=== PATIENT | female | born 1940 | race Caucasian/White ===

== ENCOUNTER 2018-06-04 10:29 | Observation (INO) | payer MEDICARE ==
[2018-06-04] MEDS ORDERED: Iopamidol 370 76% 50 ML VIAL FS ONE (10:44)
[2018-06-04 11:38] LABS: #Basophils 0.1 thou/uL (0.0-0.2); #Eosinphils 0.3 thou/uL (0.0-0.7); #Lymphocytes 1.3 thou/uL (1.20-3.40); #Monocytes 0.6 thou/uL (0.11-0.59); #Neutrophils 3.1 thou/uL (1.40-6.50); %Eosinophils 5.9 % (0.0-10.0); %Lymphocytes 23.4 % (21.0-51.0); %Monocytes 11.8 % (0.0-10.0); %Neutrophils 57.9 % (42.0-75.0); Hemoglobin 11.9 g/dL (12.0-16.0); Mean Corpuscular HGB CONC 32.8 g/dL (32.0-36.0); Mean Corpuscular Hemoglobin 30.2 pg (27.0-31.0); Mean Corpuscular Volume 91.9 fL (78.0-98.0); Mean Platelet Volume 8.3 fL (7.4-10.4); Platelet Count 227 thou/uL (130-400); RBC Distribution Width 11.9 % (11.5-14.5); Red Blood Cell (RBC) Count 3.95 mill/uL (4.20-5.40); White Blood Cell (WBC) Count 5.4 thou/uL (4.8-10.8)
[2018-06-04 11:42] LABS: INR-International Normal Ratio 1.1; PTT 24.7 SEC (22.9-36.1); Prothrombin Time 13.9 SEC (12.0-14.7)
[2018-06-04] MEDS ORDERED: Pantoprazole 40 MG VIAL ONE (11:51)
[2018-06-04 12:08] LABS: ALT (SGPT) 11 U/L (8-55); AST (SGOT) 25 U/L (5-34); Albumin 3.8 g/dL (3.4-4.8); Alkaline Phosphatase 82 U/L (40-150); Anion Gap 16 mmol/L (10-20); BUN (Urea Nitrogen) 15 mg/dL (9.8-20.1); Bilirubin, Total 0.7 mg/dL (0.2-1.2); Calc. Creatinine Clearance 0 mL/min (70-130); Calcium 9.4 mg/dL (7.8-10.44); Carbon Dioxide 21 mmol/L (23-31); Chloride 107 mmol/L (98-107); Estimated GFR-MDRD 57; Globulin 3.3 g/dL (2.4-3.5); Glucose 76 mg/dL (83-110); Potassium 4.6 mmol/L (3.5-5.1); Protein, Total 7.1 g/dL (6.0-8.3); Sodium 139 mmol/L (136-145)
[2018-06-04 12:28] LABS: Bilirubin Negative (Negative); Blood, Urine Negative (Negative); Clarity CLEAR (Clear); Glucose, Urine (Dipstick) Negative (Negative); Leukocyte Trace (Negative); Nitrite Negative (Negative); Protein, Urine (Dipstick) Negative (Neg-Trace); Specific Gravity, Urine 1.017 (1.002-1.036); pH, Urine 6.5 (5.0-9.0)
[2018-06-04 12:31] LABS: Bacteria/HPF 1+ HPF (None Seen); Hyaline Casts/LPF 4-6 HYALINE CAST LPF (0-3 Hyaline); Pathc Cast-AUWi Flag 1.59 (0-2.49); RBC/HPF 0-3 HPF (0-3); WBC/HPF 0-3 HPF (0-3)
--- NOTE | 2018-06-04 12:59 | CT ---
CT ABDOMEN AND PELVIS WITH IV CONTRAST: HISTORY: Abdominal pain. Melena. COMPARISON: 05/19/2015 FINDINGS: The lung bases are clear. The left kidney and gallbladder are surgically absent with associated dist ention of the biliary system. Right adrenal adenoma appears stable. Prominent calcification through out the arterial structures. The urinary bladder is incompletely distended. Lack of oral contrast limits evaluation of the bowel. Numerous diverticula arise from the sigmoid co florencia. No adjacent inflammation. IMPRESSION: 1. Diverticulosis. No evidence of diverticulitis. 2. Atherosclerosis. 3. Postoperative changes and other chronic type findings appear stable. POS: [facility]
[2018-06-04] MEDS ORDERED: Ondansetron ODT 4 MG TAB SL PRN (15:52)
[2018-06-04] MEDS ORDERED: Ondansetron PF 4 MG/2 ML Vial IVP PRN ×2 (15:52→16:06)
[2018-06-04] MEDS ORDERED: Acetaminophen 325 MG TAB PO PRN (15:52)
[2018-06-04] MEDS ORDERED: Ondansetron ODT 4 MG TAB PO PRN (16:06)
[2018-06-04 16:07] VITALS: BMI 24.9
[2018-06-04] MEDS ORDERED: Pantoprazole 40 MG VIAL IVP SCH (16:15)
[2018-06-04 16:34] LABS: Hemoglobin 12.2 g/dL (12.0-16.0)
[2018-06-04] MEDS: Sodium Chloride 0.9% 1,000 ML IV SCH (16:48)
--- NOTE | 2018-06-04 19:54 | CON ---
DATE OF CONSULTATION: 06/04/2018 REASON FOR CONSULTATION: Bloody stool. HISTORY: Mrs. Rizo is a 77-year-old female who came to the ER today reporting 3-day history of having bloody stools characterized as initially liquid bloody diarrhea. She does have some low-grade cramping, rolling, abdominal discomfort, but denies having any severe localizing abdominal pain. There is no nausea or vomiting. There is no fever. She does feel weak, but does not have any orthostatic symptoms such as lightheadedness or syncope. Her vitals were normal in the ER. Her blood count showed a hemoglobin of 11.9, which is within her baseline dating back to the last 3 years. She had an outpatient EGD and colonoscopy by Dr. Blank in March 2015. The EGD showed a hiatal hernia and colonoscopy showed left-sided diverticulosis coli. Currently, she is without any other complaints. PAST MEDICAL HISTORY: 1. Hypertension. 2. Renal cell carcinoma. 3. History of colon adenoma. 4. Status post nephrectomy. 5. Status post mastectomy. 6. Status post cholecystectomy. 7. Status post recent salpingo-oophorectomy and bladder lift. ALLERGIES: NONE. SOCIAL HISTORY: The patient is . Has no tobacco or alcohol usage. FAMILY HISTORY: Negative for any known GI problem, liver disease, or GI malignancy. CURRENT MEDICATIONS: Include enalapril 2.5 mg daily. REVIEW OF SYSTEMS: 10-point review of systems did not show any other pertinent positives or negatives. PHYSICAL EXAMINATION: VITAL SIGNS: Temperature is 97.7, blood pressure 170/89, and pulse is 68. GENERAL: She is alert, conversant, in no distress. HEENT: Shows anicteric sclerae. Oropharynx is clear. NECK: Supple. CV: Shows normal S1 and S2. Regular rate and rhythm. CHEST: Shows normal breath sounds. ABDOMEN: Soft, mildly tender in the suprapubic and left middle quadrant. No guarding, tense, or rebound. She has active bowel sounds. No bruit. EXTREMITIES: Shows no edema. LABORATORY DATA: WBC is 5.4, hemoglobin 11.9, and platelet count of 227. Sodium 139, potassium 4.6, chloride 107, CO2 of 21, creatinine 0.96, and BUN of 15. LFTs are normal. IMAGING STUDIES: Abdominal pelvic CT showed diverticulosis, but no CT finding of diverticulitis. No other acute findings. ASSESSMENT: 1. The patient with bloody stools/hematochezia for the last 3 days that appears to be slowing down or stopping. The patient did have a colonoscopy 3 years ago that showed left-sided diverticulosis. CT did not show any acute process. I suspect this is diverticular bleeding that appears to be slowing down or stopping. 2. Anemia, chronic at baseline. RECOMMENDATIONS: 1. Since the patient has had bleeding for the last 3 days, we will obtain nuclear GI bleeding scan in a.m. to ascertain cessation of bleeding. 2. Otherwise, no plan for endoscopic intervention at the present time. 3. We will continue to monitor clinically and follow her blood count. Job ID: [id number]
[2018-06-04] MEDS: Pantoprazole 40 MG VIAL IVP SCH (20:08)
[2018-06-05] MEDS: Acetaminophen 325 MG TAB PO PRN (00:56)
[2018-06-05] MEDS: Sodium Chloride 0.9% 1,000 ML IV SCH ×3 (01:00→16:43)
[2018-06-05 06:10] LABS: #Eosinphils 0.3 thou/uL (0.0-0.7); #Lymphocytes 0.9 thou/uL (1.20-3.40); #Monocytes 0.5 thou/uL (0.11-0.59); #Neutrophils 1.6 thou/uL (1.40-6.50); %Basophils 0.4 % (0.0-1.0); %Eosinophils 10.2 % (0.0-10.0); %Lymphocytes 26.7 % (21.0-51.0); %Monocytes 13.6 % (0.0-10.0); %Neutrophils 49.2 % (42.0-75.0); Mean Corpuscular HGB CONC 33.8 g/dL (32.0-36.0); Mean Corpuscular Hemoglobin 30.9 pg (27.0-31.0); Mean Corpuscular Volume 91.3 fL (78.0-98.0); Mean Platelet Volume 8.3 fL (7.4-10.4); Platelet Count 217 thou/uL (130-400); RBC Distribution Width 11.9 % (11.5-14.5); Red Blood Cell (RBC) Count 3.58 mill/uL (4.20-5.40); White Blood Cell (WBC) Count 3.3 thou/uL (4.8-10.8)
[2018-06-05 06:14] LABS: Anion Gap 10 mmol/L (10-20); BUN (Urea Nitrogen) 12 mg/dL (9.8-20.1); Calc. Creatinine Clearance 63 mL/min (70-130); Calcium 8.6 mg/dL (7.8-10.44); Carbon Dioxide 26 mmol/L (23-31); Chloride 108 mmol/L (98-107); Estimated GFR-MDRD 63; Glucose 85 mg/dL (83-110); Magnesium 1.8 mg/dL (1.6-2.6); Potassium 3.8 mmol/L (3.5-5.1); Sodium 140 mmol/L (136-145)
[2018-06-05] MEDS: Pantoprazole 40 MG VIAL IVP SCH (08:23)
--- NOTE | 2018-06-05 13:40 | NM ---
NUCLEAR MEDICINE GI BLEEDING EXAMINATION: Date: 06/05/18 COMPARISON: None. HISTORY: Blood stools. TECHNIQUE: Anterior planar imaging over 90 minutes is obtained following the intravenous administration of 27 mC i [id number] labeled tagged red blood cells. FINDINGS: There is normal blood pool activity seen with urinary bladder activity noted. There is no scintigrap hic evidence of active GI bleeding. IMPRESSION: No scintigraphic evidence of active GI bleeding. POS: [facility]
--- NOTE | 2018-06-05 17:26 | PRG ---
DATE OF SERVICE: 06/05/2018 GI followup. SUBJECTIVE: Ms. Rizo has lower abdominal pain. She had some bowel movements after lunch showed less blood when she wiped. Her tagged scan was negative. She feels that the Protonix given to her is making her stomach hurt. Her daughter notes that she has had this problem for a while. In November, she had some pelvic surgery for her pelvic pain, and she had some lysis of adhesions. OBJECTIVE: VITAL SIGNS: Temperature is 97.9, pulse is 58, blood pressure is 153/75. ABDOMEN: Mildly tender in lower abdomen. There is no rebound. There is no guarding. Bowel sounds are positive. LABORATORY DATA: White count is 3.3, hemoglobin is 11, it was 11.9 yesterday morning, and platelet count 217. INR 1.1. Chemistry, normal comprehensive metabolic profile. . Liver function tests normal. ASSESSMENT: Lower gastrointestinal bleeding. The patient noted she had some quite a bit of mucus and some blood in the past 2 days before she came in with abdominal pain. She states it started here. She had a colonoscopy 2 years ago with diverticulosis. CAT scan was negative with lower abdominal pain. Differential diagnosis includes self-limited diverticular bleeding or some type of colitis. RECOMMENDATIONS: Advance diet as tolerated. Check H and H tomorrow. Start PPI. If her pain goes away and her hemoglobin is stable, she can probably go home tomorrow. Job ID: [id number]
[2018-06-05 21:01] VITALS: TEMP 97.9
[2018-06-06] MEDS: Acetaminophen 325 MG TAB PO PRN (00:51)
[2018-06-06 05:13] LABS: Band 3 % (5-11); Eosinophils 15 % (0-10); Hemoglobin 11.5 g/dL (12.0-16.0); Lymphocytes 22 % (21-51); MDiff Complete? YES; Mean Corpuscular HGB CONC 34.2 g/dL (32.0-36.0); Mean Corpuscular Hemoglobin 31.1 pg (27.0-31.0); Monocytes 9 % (0-10); Neutrophil 48 % (42-75); PLT Morphology Comment Appears Adequate; Platelet Count 218 thou/uL (130-400); RBC Distribution Width 11.9 % (11.5-14.5); Red Blood Cell (RBC) Count 3.71 mill/uL (4.20-5.40); White Blood Cell (WBC) Count 3.8 thou/uL (4.8-10.8)
[2018-06-06 05:15] LABS: ALT (SGPT) 10 U/L (8-55); AST (SGOT) 19 U/L (5-34); Albumin 3.4 g/dL (3.4-4.8); Alkaline Phosphatase 71 U/L (40-150); Anion Gap 9 mmol/L (10-20); BUN (Urea Nitrogen) 13 mg/dL (9.8-20.1); Bilirubin, Total 0.7 mg/dL (0.2-1.2); Calc. Creatinine Clearance 53 mL/min (70-130); Calcium 9.1 mg/dL (7.8-10.44); Carbon Dioxide 27 mmol/L (23-31); Chloride 108 mmol/L (98-107); Estimated GFR-MDRD 53; Globulin 2.6 g/dL (2.4-3.5); Glucose 89 mg/dL (83-110); Potassium 3.8 mmol/L (3.5-5.1); Sodium 140 mmol/L (136-145)
[2018-06-06 08:01] VITALS: BP 158/80
--- NOTE | 2018-06-06 09:08 | PDOC.PN ---
- Subjective Encounter Start Date: 06/05/18 Encounter Start Time: 15:00 follow up for rectal bleeding. Pt in Nuc Med earleir, Tagged scan negative, no further bleeding, h/H stable. Pt upset that i hadnt seen her yet, but ishe was gone on morning rounds No F/C, no n/V/D/C, no cP or SOB all systems reviewed and neg x as above - Objective Resuscitation Status - Order Detail: 06/04/18 14:49 Resuscitation Status Routine Resuscitation Status: FULL: Full Resuscitation MAR Reviewed: Yes Vital Signs & Weight: Vital Signs (12 hours) Temp Pulse Resp BP Pulse Ox 06/06/18 07:55 97.9 F 61 18 158/80 H 95 Weight Weight 159 lb I&O: 06/05/18 06/06/18 06/07/18 06:59 06:59 06:59 Intake Total 1710 120 Balance 1710 120 Result Diagrams: 06/06/18 04:06 06/06/18 04:06 Phys Exam - Physical Examination Constitutional: NAD HEENT: PERRLA, moist MMs, sclera anicteric, oral pharynx no lesions Neck: no nodes, no JVD, supple, full ROM Respiratory: no wheezing, no rales, no rhonchi, clear to auscultation bilateral Cardiovascular: RRR, no significant murmur, no rub Gastrointestinal: soft, non-tender, no distention, positive bowel sounds Musculoskeletal: pulses present Neurological: non-focal, normal sensation, moves all 4 limbs Lymphatic: no nodes Psychiatric: normal affect, A&O x 3 Skin: no rash, normal turgor, cap refill <2 seconds Dx/Plan (1) Rectal bleeding Code(s): K62.5 - HEMORRHAGE OF ANUS AND RECTUM Status: Acute (2) HTN (hypertension) Code(s): I10 - ESSENTIAL (PRIMARY) HYPERTENSION Status: Chronic Qualifiers: Hypertension type: essential hypertension Qualified Code(s): I10 - Essential (primary) hypertension (3) Diverticulosis Code(s): K57.90 - DVRTCLOS OF INTEST, PART UNSP, W/O PERF OR ABSCESS W/O BLEED Status: Acute Qualifiers: Diverticulosis site: diverticulosis of large intestine (4) Abdominal pain Code(s): R10.9 - UNSPECIFIED ABDOMINAL PAIN Status: Resolved - Plan cont current plan of care, plan discussed w/ family * .
--- NOTE | 2018-06-06 10:11 | DIS ---
DATE OF ADMISSION: 06/04/2018 DATE OF DISCHARGE: 06/06/2018 PRIMARY CARE PHYSICIAN: Dr. Vazquez. DISCHARGE DIAGNOSES: 1. Likely internal hemorrhoidal bleeding. 2. Degenerative joint disease. 3. Hypertension. 4. History of breast cancer. 5. History of renal cell carcinoma. 6. History of diverticulosis. CONSULTATIONS: GI. PROCEDURE: GI bleed nuclear scan on 06/05/2018, it showed no evidence of active bleeding. HISTORY AND PHYSICAL: Ms. Rizo is a 77-year-old female, who presented to the ER with 3 days of rectal bleeding and dark stools. We were called for admission. HOSPITAL COURSE: The patient was seen and examined by me in the emergency department, placed in observation status. Overnight, her hemoglobin dropped only from 11.9 to 11.0. She was seen by Dr. Jacobs with GI, who ordered a tagged red blood cell scan, which was done in the morning of 06/05. Tagged scan came back negative. Dr. Blank saw her in the late afternoon and wanted to keep her one more night and trend her H and H's with the understanding that she can go home in the morning if it was negative. had no further bleeding. Her hemoglobin was stable and actually slightly improved from 11.0 to 11.5, and she was discharged home with outpatient followup on Protonix. PHYSICAL EXAMINATION: The patient was seen and examined on the day of discharge. Discharge plan and disposition were discussed with the patient face to face at bedside. DISCHARGE MEDICATIONS: Protonix 40 mg daily. DISCHARGE CONDITION: Stable. DISPOSITION: Discharged home via private vehicle with outpatient followup. FOLLOWUP APPOINTMENTS: 1. Primary care physician, Dr. Vazquez within a week. 2. GI with Dr. Jacobs or Dr. lBank in 2 to 3 weeks. DISCHARGE ACTIVITY: As tolerated. DISCHARGE DIET: Heart healthy recommended. Job ID: [id number]
--- NOTE | 2018-06-06 10:13 | HP ---
PRIMARY CARE PHYSICIAN: Dr. Vazquez. TIME OF SERVICE: 1500 hours. CHIEF COMPLAINT: Rectal bleeding. HISTORY OF PRESENT ILLNESS: Ms. Rizo is a 77-year-old female with history of diverticulosis and history of diverticulitis a year or so ago, breast cancer and renal cell carcinoma in remission, hypertension, DJD. She presented to the emergency department complaining of black colored hard stool with some red blood for about 2 to 3 days. She is having 2 to 3 episodes a day. She decided to come to the emergency department for workup. Evaluation here showed hemoglobin 11.9 and we were subsequently called for admission. She does take Aleve as needed for arthritic pain, but denies any fevers or chills. No nausea or vomiting. No diarrhea. No melena. No hematemesis. PAST MEDICAL HISTORY: 1. Diverticulosis. She had diverticulitis in June 2017. 2. Breast cancer. 3. Renal cell carcinoma. 4. Hypertension. 5. DJD. PAST SURGICAL HISTORY: 1. She had oophorectomy recently. 2. Bladder surgery. 3. Left nephrectomy. 4. Right axillary lymph node dissection. 5. Cholecystectomy. 6. Right lumpectomy. 7. Left rotator cuff repair. MEDICATIONS: Home medications: She says none regularly. ALLERGIES: NKDA. FAMILY HISTORY: Negative for clotting or bleeding disorder, no immune dysfunction. SOCIAL HISTORY: Negative habits x3. She lives by herself and takes care of animals at home and is very anxious to get back to them. REVIEW OF SYSTEMS: All systems reviewed and negative except as stated in the HPI. PHYSICAL EXAMINATION: VITAL SIGNS: Temperature on admission 97.7, pulse 68, blood pressure 170/89, respiratory rate 18, saturating 96% on room air. GENERAL: She is awake, alert, oriented x3. She is an age-appropriate appearing white female, appears to be in no acute distress. HEENT: Normocephalic, atraumatic. Pupils equal, round, react to light bilaterally, mucous membranes are moist. There is no visible lesion or thrush. NECK: Supple. There is no lymphadenopathy, JVD, or thyromegaly. She had normal carotid upstrokes. No bruit. LUNGS: Clear. No wheezes, no rales, no rhonchi. Good air movement. Symmetric chest excursion. ABDOMEN: Soft, nontender, nondistended. No mass or hepatosplenomegaly. CARDIOVASCULAR: Normal S1, S2. No S3 or S4. She has regular and normal cardiac. SKIN: Warm, moist, well perfused. No rash or lesion. EXTREMITIES: No cyanosis, clubbing, or edema. NEUROLOGIC: Cranial nerves 2 through 12 grossly intact. No focal neuro deficits. LABORATORY DATA: CBC showed a white count of 5.4, hemoglobin 11.9, hematocrit 36.3, and platelet count 227,000 with fairly normal differential. INR is 1.1. CMP is within normal limits. Sodium 139, potassium 4.6, creatinine of 0.96. Normal LFTs. Urinalysis showed trace leukocyte esterase, 7 to 10 squamous epithelial cells. IMAGING STUDIES: CT scan of the abdomen and pelvis showed postoperative changes and diverticulosis without diverticulitis and atherosclerosis. ASSESSMENT AND PLAN: Gastrointestinal bleed, had some dark stool with some red blood. I suspect this could be a lower GI or internal hemorrhoids. We will place her on a PPI for now. We will ask GI to evaluate. We will get serial H and H. Hemoglobin is still 11.9, I think she is going to need transfusion. Watch overnight and continue home medications otherwise. We will place her on Protonix 40 mg IV q.12 hours for now and follow up on GI recommendations. Job ID: [id number]
== END 2018-06-06 09:57 | disposition home or self-care (01) ==
LOC: ERS 10:29 → INTOOBSV 15:56 → T4-B 15:56
PROVIDERS: ADMIT Internal Medicine Infectious Disease; ATTEND Internal Medicine Infectious Disease
DX: K62.5 Hemorrhage of anus and rectum (principal); K57.30 Diverticulosis of large intestine without perforation or abscess without bleeding; D64.9 Anemia, unspecified; M19.90 Unspecified osteoarthritis, unspecified site; I10 Essential (primary) hypertension; Z85.3 Personal history of malignant neoplasm of breast; Z85.528 Personal history of other malignant neoplasm of kidney; Z79.899 Other long term (current) drug therapy
CPT/HCPCS: 74177; 78278; 80048; 80053 ×2; 82274; 83735; 85014; 85018; 85025 ×3; 85610; 85730; 86850; 86900; 86901; 87086; 96361 ×2; 96374; 96376 ×2; 99285; A9604; G0378 ×2; 36415; 81003; 81015; C9113

== ENCOUNTER 2018-10-22 09:26 | Inpatient (IN) | payer MEDICARE ==
[2018-10-22 10:12] LABS: #Basophils 0.1 thou/uL (0.0-0.2); #Eosinphils 0.1 thou/uL (0.0-0.7); #Lymphocytes 1.2 thou/uL (1.20-3.40); #Monocytes 0.4 thou/uL (0.11-0.59); #Neutrophils 4.5 thou/uL (1.40-6.50); %Eosinophils 1.7 % (0.0-10.0); %Lymphocytes 18.8 % (21.0-51.0); %Monocytes 6.6 % (0.0-10.0); Mean Corpuscular HGB CONC 32.7 g/dL (32.0-36.0); Mean Corpuscular Hemoglobin 29.6 pg (27.0-31.0); Mean Corpuscular Volume 90.5 fL (78.0-98.0); Mean Platelet Volume 8.1 fL (7.4-10.4); Platelet Count 270 thou/uL (130-400); RBC Distribution Width 12.1 % (11.5-14.5); Red Blood Cell (RBC) Count 3.72 mill/uL (4.20-5.40); White Blood Cell (WBC) Count 6.3 thou/uL (4.8-10.8)
[2018-10-22 10:35] LABS: ALT (SGPT) 13 U/L (8-55); AST (SGOT) 20 U/L (5-34); Alkaline Phosphatase 85 U/L (40-150); Anion Gap 12 mmol/L (10-20); BUN (Urea Nitrogen) 22 mg/dL (9.8-20.1); Bilirubin, Total 0.9 mg/dL (0.2-1.2); Calc. Creatinine Clearance 0 mL/min (70-130); Calcium 9.3 mg/dL (7.8-10.44); Carbon Dioxide 22 mmol/L (23-31); Chloride 108 mmol/L (98-107); Estimated GFR-MDRD 47; Globulin 2.7 g/dL (2.4-3.5); Glucose 110 mg/dL (83-110); Potassium 4.3 mmol/L (3.5-5.1); Protein, Total 6.7 g/dL (6.0-8.3); Sodium 138 mmol/L (136-145)
[2018-10-22 10:59] LABS: INR-International Normal Ratio 1.1; PTT 28.6 SEC (22.9-36.1); Prothrombin Time 14.5 SEC (12.0-14.7)
--- NOTE | 2018-10-22 11:44 | CT ---
CT Abdomen Pelvis W Con: 10/22/2018 10:20 AM CLINICAL INFORMATION: Hematochezia COMPARISON: 06/04/2018, 05/19/2015 Procedure: Multiple contiguous axial images were obtained and a CT of the abdomen and pelvis with IV contrast. C oronal reformats were performed. FINDINGS: Lower Chest: Chronic changes Vessels: Normal caliber aorta. Abdomen: Portal vein:Patent Gallbladder: Surgically absent. Dilatation of the intra and extrahepatic biliary system, due to reser voir effect Liver: within normal limits. Pancreas: within normal limits. Spleen: within normal limits. Adrenals: Surgically absent left adrenal gland. 1.8 x 2.6 cm nodule associated with the right adrenal gland (previously measuring 2.5 x 2.1 cm. Kidneys: Surgically absent left kidney. Appropriate enhancement of the right kidney. No enhancing mas ses. No fracture. Uropathy. Stable parapelvic cyst in the lower pole of the right kidney with attenuation coefficient of 13 Hounsfield units. Peritoneum: No ascites or free air, no fluid collection. Bowel: Limited evaluation by the lack of oral contrast. Bariatric surgical changes are noted. No evid ence of bowel obstruction. Ileocecal junction is normal. Normal caliber appendix. Scattered fecal material in a nondistended, nondilated colon. Diverticulosis, without evidence of diverticulitis Mesentery and Retroperitoneum: No enlarged mesenteric or retroperitoneal lymph nodes. Abdominal Wall: within normal limits. Pelvis: Reproductive Organs: Surgically absent uterus Pelvis within normal limits. Bladder: within normal limits. Bones: within normal limits. IMPRESSION: 1. No evidence of bowel obstruction 2. Diverticulosis, without evidence of diverticulitis. 3. Given patient's history of hematochezia, consider colonoscopy if clinically warranted. 4. Indeterminate lesion in the right adrenal gland, similar to the examination from May 2018 and April 2015 5. Findings compatible with surgery in the left hemiabdomen.
[2018-10-22 14:23] VITALS: BMI 23.3
[2018-10-22 14:26] LABS: Troponin I Less than 0.010 ng/mL (< 0.028)
[2018-10-22] MEDS ORDERED: Diabetic Tussin 200 MG/10 ML UDCUP PO PRN (15:15)
[2018-10-22] MEDS ORDERED: Senokot S 8.6-50 MG TAB PO PRN (15:15)
[2018-10-22] MEDS ORDERED: Benzonatate 100 MG CAP PO PRN (15:15)
[2018-10-22] MEDS ORDERED: Ondansetron PF 4 MG/2 ML Vial IVP PRN (15:15)
[2018-10-22] MEDS ORDERED: hydrALAZINE 20 MG/ML VIAL SLOW IVP PRN (15:15)
[2018-10-22] MEDS ORDERED: Sodium Chloride 0.65% Nasal 44 ML BOT EA NARE PRN (15:15)
[2018-10-22] MEDS ORDERED: Acetaminophen 325 MG TAB PO PRN (15:15)
[2018-10-22] MEDS ORDERED: cloNIDine 0.1 MG TAB PO PRN (15:15)
[2018-10-22] MEDS ORDERED: Sodium Chloride 0.9% (PF) 10 ML VIAL FS PRN (15:35)
--- NOTE | 2018-10-22 16:32 | HP ---
PRIMARY CARE PHYSICIAN: None. CHIEF COMPLAIN: Bright red blood per rectum with maroon stools. HISTORY OF PRESENTING ILLNESS: Ms. Rizo is a pleasant 78-year-old female with past medical history of diverticulitis as well as history of breast cancer and kidney cancer, who presented to the emergency room with above-mentioned complaints. History is mainly obtained by the patient herself and electronic medical records have been reviewed. The patient was last admitted to our facility in May 2018 with similar complaints. At that time, she was seen by Gastroenterology, Dr. Jacobs and underwent a tagged nuclear GI bleed scan on 06/05/2018, which showed no evidence of active bleeding. She was discharged home at that time on Protonix. She came back to the emergency room today when all of a sudden she started to have multiple episodes of maroon stools starting yesterday. She has been noticing some pain in her lower back, coming to her front as well. She reports that since last night, she has had 12 episodes of maroon bloody bowel movements without much stool, and this morning, they cleared up and she has had two regular stools since morning that were sort of loose. She denies any abdominal pain. She denies any nausea or vomiting. She has no recent travels and no recent dietary or medication changes. Her last colonoscopy was about 3 years ago. She reports that she has been seen by physicians in different hospitals, but she was not satisfied with any of the workup, so she stopped going to the doctors all together. She went to Urgent Care today, where she was found to be significantly symptomatic with dizziness on standing. Her blood pressure was checked and she was definitively orthostatic with her systolic blood pressure dropping from 120s to 60s. So, she was transferred to our facility, where orthostatics were checked again and she was very symptomatic. Her hemoglobin was however found to be stable around 11. Our ER doctor did a CT scan of her abdomen and pelvis, which was negative for any bowel obstruction. She had diverticulosis without evidence of diverticulitis. There was an indeterminate lesion in the right adrenal gland, which was similar to examination from May 2018 and April 2015. She was treated with some saline and is now being admitted under observation status for further workup for her hematochezia causing near syncope. The patient also endorses some chest discomfort and some epigastric discomfort since yesterday. PAST MEDICAL HISTORY: 1. Diverticulosis and diverticulitis in June 2017. 2. History of breast cancer. 3. History of renal cell carcinoma. 4. Hypertension. 5. Degenerative joint disease. PAST SURGICAL HISTORY: 1. Oophorectomy with bladder sling operation in the past. 2. Left nephrectomy. 3. Right axillary lymph node dissection. 4. Cholecystectomy. 5. Right lumpectomy. 6. Left rotator cuff repair. HOME MEDICATIONS: Current home medications as listed in the ER records and further need to be confirmed. 1. Enalapril 5 mg. 2. Aspirin 325 mg. 3. Iron supplements. ALLERGIES: NO KNOWN MEDICATION ALLERGIES. FAMILY HISTORY: Negative for any clotting, bleeding, or immune disorders. No family history of colon cancer, stomach cancer, or coronary artery disease. SOCIAL HISTORY: She lives by herself and is independent with her ADLs and IADLs. She has no history of drug, tobacco, or alcohol abuse. CODE STATUS: Full code, discussed with the patient. REVIEW OF SYSTEMS: A 14-point review of system is done. It is negative except for those mentioned in the history and physical. LABORATORY DATA: Her CBC shows WBCs 6.3; hemoglobin 11.0, which was 11.5 in May 2018 and seems to be her baseline. PT, PTT, and INR are within normal limits. Serum chemistry showed chloride 108, bicarb 22, BUN 22, creatinine 1.12. Serial troponins are negative x2. Liver enzymes within normal limits. CT scan of the abdomen and pelvis as per HPI. Fecal occult blood testing is positive. PHYSICAL EXAMINATION: VITAL SIGNS: Most recent vital signs; temperature 97.6, pulse of 67, respirations 16, saturating 96% on room air. Blood pressure supine 147/78, sitting 151/69, and standing 130/68. GENERAL: She is lying comfortably in bed and is awake, alert, and oriented x3. HEENT: Mucous membrane is moist and pink. No oropharyngeal exudate or erythema. Head is normocephalic and atraumatic. Pupils are equal and reactive to light and accommodation. Extraocular movement intact. NECK: Supple without any lymphadenopathy, JVD, or bruit. CHEST: Clear to auscultation without any wheezing, rales, or rhonchi. HEART: Rate rhythm is regular without any murmurs, rubs, or gallops. ABDOMEN: Soft, nontender, and nondistended, with positive bowel sounds. EXTREMITIES: Free of any cyanosis, clubbing, or edema. NEUROLOGIC: Nonfocal. SKIN: Free of any rashes or bruises. Feels warm and dry to touch. RECTAL: Rectal exam was done in the emergency room by the ER physician, which showed maroon-colored stool. PSYCHIATRIC: Normal affect. IMPRESSION AND PLAN: 1. Hematochezia. The patient has had multiple episodes of hematochezia and is quite symptomatic with that. She will be started on gentle IV fluid for rehydration purposes and we will check hemoglobin and hematocrit every few hours. Most likely, she would need a colonoscopy again. She has history of diverticulitis, but none apparent on the CT scan for now. We will keep her n.p.o. and request consultation with Gastroenterology and treat her with IV Protonix for now twice a day. Transfuse to keep hemoglobin above 7. 2. Acute renal insufficiency. This is likely secondary to fluid volume loss and hypotension. We will start her on gentle IV fluids and recheck in the morning. Avoid any nephrotoxic medication. 3. Breast cancer. 4. History of renal cell carcinoma. Does not seem to have any recurrence at this time. 5. History of diverticulitis. No current episode. 6. SCDs for DVT prophylaxis. Proton pump inhibitor for GI prophylaxis. DISPOSITION: Ms. Rizo is currently being admitted to the hospital under observation status for hematochezia. Further management will depend upon her clinical course and Gastroenterology's recommendations. Job ID: [id number]
[2018-10-22 17:06] LABS: Hemoglobin 9.6 g/dL (12.0-16.0)
[2018-10-22] MEDS: Dextrose 5 %-0.45 % NaCl 1,000 ML IV SCH (17:17)
[2018-10-22 17:38] LABS: Troponin I 0.013 ng/mL (< 0.028)
[2018-10-22] MEDS: Pantoprazole 40 MG VIAL IVP SCH (20:23)
[2018-10-22 21:56] LABS: Hemoglobin 9.4 g/dL (12.0-16.0)
--- NOTE | 2018-10-23 02:14 | CON ---
DATE OF CONSULTATION: 10/22/2018 REASON FOR CONSULTATION: Bloody stool. HISTORY OF PRESENT ILLNESS: Mrs. Rizo is a 78-year-old female who is known to me from prior admission in May 2018. She presents this time with similar presentation. She reports having a sudden onset of hematochezia yesterday around 2:00 p.m. Over the ensuing 12 hours, she had approximately 12 episodes of small volume bloody stool along with small amount of clots. She denies having any abdominal pain other than some discomfort in the upper abdominal area. There is no nausea or vomiting. However, at 7 this morning, which is approximately 13 hours ago, she had a regular bowel movement without any visible blood. However, with positional change, she felt dizzy and lightheaded, but without any syncope. She denies having any chest pain. There is no shortness of breath. The patient presented to the ER with a hemoglobin of 11. However, recheck hemoglobin at fourth day showed decreased down to 9.6 g/dL. The patient was last admitted in May 2018 with similar painless bleeding. Bleeding scan at that time was negative. She did have an outpatient EGD and colonoscopy by Dr. Blank in March 2015 that showed left-sided diverticulosis coli. PAST MEDICAL HISTORY: 1. Renal cell carcinoma, status post nephrectomy. 2. History of colon polyps, adenoma. 3. Status post mastectomy for breast cancer. 4. Status post cholecystectomy. 5. Recent salpingo-oophorectomy and bladder lift. CURRENT MEDICATIONS: At home include none. ALLERGIES: NO KNOWN DRUG ALLERGIES. SOCIAL HISTORY: The patient is . She has no tobacco or alcohol usage. She works as a caregiver. FAMILY HISTORY: Negative for any known GI problem, liver disease, or GI malignancy. REVIEW OF SYSTEMS: All 10-point review of systems did not show any pertinent positives or negatives. PHYSICAL EXAMINATION: VITAL SIGNS: Temperature is 98.5, blood pressure 141/46, pulse of 60. GENERAL: She is alert, conversant, in no distress. HEENT: Shows anicteric sclerae. Oropharynx is clear. NECK: Supple. CV: Shows normal S1 and S2. Regular rate and rhythm. CHEST: Shows a breath sounds, clear to auscultation. ABDOMEN: Soft, mildly protuberant but nontender. No distention. No tympany. She has active bowel sounds. EXTREMITIES: Shows no edema. LABORATORY DATA: WBC 6.3, hemoglobin 11.0 at 10 a.m. this morning and now at 9.6 at 4:00 p.m., platelet count of 270. INR is 1.1, PTT 28.6. Electrolytes within normal range. Creatinine is 1.12. LFTs are normal. Troponin I three sets all negative. ASSESSMENT: 1. Hematochezia, painless, lasting for 12 hours, that has now resolved with normal stool without blood 13 hours ago. The patient has not had any further bowel movements since then. Her bleeding is very characteristic of diverticular bleed that has resolved similar to last presentation. 2. Mild orthostasis, likely from her mild acute anemia. RECOMMENDATIONS: 1. No GI intervention or diagnostic test is needed at the present time as she has not had any further bowel movement for the last 13 hours or any visible bleeding. 2. Continue to trend H and H and follow clinically. 3. We will follow. Job ID: [id number]
[2018-10-23 05:07] LABS: #Eosinphils 0.3 thou/uL (0.0-0.7); #Lymphocytes 1.1 thou/uL (1.20-3.40); #Monocytes 0.5 thou/uL (0.11-0.59); #Neutrophils 2.2 thou/uL (1.40-6.50); %Basophils 0.6 % (0.0-1.0); %Eosinophils 8.1 % (0.0-10.0); %Lymphocytes 26.1 % (21.0-51.0); %Monocytes 11.8 % (0.0-10.0); %Neutrophils 53.5 % (42.0-75.0); Hemoglobin 9.1 g/dL (12.0-16.0); Mean Corpuscular Hemoglobin 29.8 pg (27.0-31.0); Mean Corpuscular Volume 90.3 fL (78.0-98.0); Mean Platelet Volume 8.4 fL (7.4-10.4); Platelet Count 198 thou/uL (130-400); RBC Distribution Width 12.2 % (11.5-14.5); Red Blood Cell (RBC) Count 3.06 mill/uL (4.20-5.40)
[2018-10-23] MEDS: Dextrose 5 %-0.45 % NaCl 1,000 ML IV SCH ×2 (05:15→16:56)
[2018-10-23 05:23] LABS: Anion Gap 9 mmol/L (10-20); BUN (Urea Nitrogen) 15 mg/dL (9.8-20.1); Calc. Creatinine Clearance 51 mL/min (70-130); Calcium 8.6 mg/dL (7.8-10.44); Carbon Dioxide 25 mmol/L (23-31); Chloride 109 mmol/L (98-107); Estimated GFR-MDRD 56; Glucose 99 mg/dL (83-110); Sodium 139 mmol/L (136-145)
[2018-10-23] MEDS: Pantoprazole 40 MG VIAL IVP SCH ×2 (08:13→20:53)
[2018-10-23] MEDS ORDERED: Ferrous Sulfate 325 MG TAB PO SCH (09:00)
[2018-10-23] MEDS: Ferrous Sulfate 325 MG TAB PO SCH ×2 (10:04→15:46)
--- NOTE | 2018-10-23 11:42 | PDOC.PN ---
- Subjective Encounter Start Date: 10/23/18 Encounter Start Time: 11:40 Subjective: feels ok but has 2 episodes of bloody BM this morning -: still feeling very dizzy when she stands up -: no abd pain/V/N - Objective Resuscitation Status - Order Detail: 10/22/18 15:15 Resuscitation Status Routine Resuscitation Status: FULL: Full Resuscitation Discussed with: discussed with pt MAR Reviewed: Yes Vital Signs & Weight: Vital Signs (12 hours) Temp Pulse Resp BP Pulse Ox 10/23/18 07:15 98.4 F 55 L 18 133/62 100 10/23/18 04:50 97.7 F 63 16 130/65 97 10/22/18 23:46 98.3 F 68 16 121/57 L 98 Weight Weight 148 lb I&O: 10/22/18 10/23/18 10/24/18 06:59 06:59 06:59 Intake Total 630 Balance 630 Result Diagrams: 10/23/18 04:13 10/23/18 04:13 Additional Labs: Laboratory Tests 10/22/18 10/22/18 10/22/18 10:02 16:40 21:33 Hgb 11.0 L 9.6 L 9.4 L 10/23/18 04:13 Hgb 9.1 L Phys Exam - Physical Examination Constitutional: NAD HEENT: PERRLA, moist MMs, sclera anicteric, oral pharynx no lesions Neck: no nodes, no JVD, supple, full ROM Respiratory: no wheezing, no rales, no rhonchi, clear to auscultation bilateral Cardiovascular: RRR, no significant murmur Gastrointestinal: soft, non-tender, no distention, positive bowel sounds Musculoskeletal: no edema, pulses present Neurological: non-focal, normal sensation, moves all 4 limbs Psychiatric: normal affect, A&O x 3 Skin: no rash Dx/Plan (1) Rectal bleeding Code(s): K62.5 - HEMORRHAGE OF ANUS AND RECTUM Status: Acute Comment: Likely diverticular .On and off w drop in Hb.recheck Hb and will discuss w GI. cont PPI IV.No scope for now per GI .Pt eager to go home (2) Acute blood loss anemia Code(s): D62 - ACUTE POSTHEMORRHAGIC ANEMIA Status: Acute Comment: monitor. Start iron supplemets. Transfuse for Hb <7 (3) Orthostatic hypotension Code(s): I95.1 - ORTHOSTATIC HYPOTENSION Status: Acute Comment: due to GI blood loss. Cont IVF. recheck (4) Diverticulosis Code(s): K57.90 - DVRTCLOS OF INTEST, PART UNSP, W/O PERF OR ABSCESS W/O BLEED Status: Chronic Qualifiers: Diverticulosis site: diverticulosis of large intestine - Plan DVT proph w/SCDs recheck H/H .May DC home if stable.nereyda passing clots -: cont IVF -: discuss w GI * . Review of Systems - Review of Systems Constitutional: weakness. negative: fever, chills, sweats, malaise, other ENT: negative: Ear Pain, Ear Discharge, Nose Pain, Nose Discharge, Nose Congestion, Mouth Pain, Mouth Swelling, Throat Pain, Throat Swelling, Other Respiratory: negative: Cough, Dry, Shortness of Breath, Hemoptysis, SOB with Excertion, Pleuritic Pain, Sputum, Wheezing Cardiovascular: negative: chest pain, palpitations, orthopnea, paroxysmal nocturnal dyspnea, edema, light headedness, other Gastrointestinal: negative: Nausea, Vomiting, Abdominal Pain, Diarrhea, Constipation, Melena, Hematochezia, Other Genitourinary: negative: Dysuria, Frequency, Incontinence, Hematuria, Retention , Other Musculoskeletal: negative: Neck Pain, Shoulder Pain, Arm Pain, Back Pain, Hand Pain, Leg Pain, Foot Pain, Other Neurological: negative: Weakness, Numbness, Incoordination, Change in Speech, Confusion, Seizures, Other - Medications/Allergies Allergies/Adverse Reactions: Allergies Allergy/AdvReac Type Severity Reaction Status Date / Time No Known Allergies Allergy Verified 12/18/12 13:09 Medications: Current Medications Acetaminophen (Tylenol) 650 mg PO Q4H PRN PRN Reason: Headache/Fever/Mild Pain (1-3) Benzonatate (Tessalon) 100 mg PO Q6H PRN PRN Reason: Cough Clonidine (Catapres) 0.1 mg PO Q4H PRN PRN Reason: SBP > _160___ Ferrous Sulfate (Feosol) 325 mg PO BID-[facility] Guaifenesin (Robitussin Sf) 200 mg PO Q4H PRN PRN Reason: Cough Hydralazine HCl (Apresoline) 10 mg SLOW IVP Q4H PRN PRN Reason: SBP > 170 and HR < 70 Dextrose/Sodium Chloride (D5 1/2 Ns) 1,000 mls @ 75 mls/hr IV .[id number] [facility] Last Admin: 10/23/18 05:15 Dose: 1,000 mls Ondansetron HCl (Zofran) 4 mg IVP Q6H PRN PRN Reason: Nausea/Vomiting Pantoprazole Sodium (Protonix) 40 mg IVP Q12HR [facility] Last Admin: 10/23/18 08:13 Dose: 40 mg Senna/Docusate Sodium (Senokot S) 2 tab PO BID PRN PRN Reason: Constipation Sodium Chloride ([place] Nasal [place] 0.65%) 0 ml EA NARE QIDPRN PRN PRN Reason: Nasal Congestion Sodium Chloride (Normal Saline Pf) 10 ml FS PRN PRN PRN Reason: RECONSTITUTION
[2018-10-23] MEDS ORDERED: GoLYTELY 4,000 ml Bottle PO SCH (12:30)
--- NOTE | 2018-10-23 12:41 | PRG ---
DATE OF SERVICE: 10/23/2018 SUBJECTIVE: Ms. Rizo came in yesterday. She has been fed now. She is no longer having clots, but had some dark red stools twice this morning. Still feels pretty weak. MEDICATIONS: At home, she does take Aleve several times a month. Present medications; iron, D5W, acetaminophen, and Protonix. PHYSICAL EXAMINATION: GENERAL: She is resting comfortably in bed. She is in no distress. LUNGS: Clear. HEART: Regular rate and rhythm without clicks or murmurs. ABDOMEN: Soft and nontender. LABORATORY DATA: Hemoglobin is 9.1 this morning, it was 9.4 yesterday in the morning. BUN and creatinine are 15 and 0.97 down from 22 and 1.12. ASSESSMENT: Gastrointestinal hemorrhage. She seems to have slowed in her bleeding, maybe have stopped. She is taking NSAIDs on a regular basis. This is likely diverticular, but this is the first time she has had significant drop in hemoglobin. She had a similar bleed in May, just 4-1/2 months ago. RECOMMENDATIONS: 1. Avoid NSAIDs. 2. Upper and lower endoscopy tomorrow. We will follow along with you. Job ID: [id number]
[2018-10-23 13:11] LABS: Hemoglobin 9.4 g/dL (12.0-16.0)
[2018-10-24] MEDS: Dextrose 5 %-0.45 % NaCl 1,000 ML IV SCH (07:39)
[2018-10-24] MEDS: Ferrous Sulfate 325 MG TAB PO SCH ×2 (07:40→17:54)
[2018-10-24] MEDS: Pantoprazole 40 MG VIAL IVP SCH (08:37)
--- NOTE | 2018-10-24 12:27 | OP ---
DATE OF PROCEDURE: 10/24/2018 PROCEDURES PERFORMED: 1. Esophagogastroduodenoscopy (diagnostic). 2. Colonoscopy (diagnostic). INDICATION FOR PROCEDURE: Hematochezia, GI bleed. DESCRIPTION OF PROCEDURE: After the risks and benefits of the procedures were explained to the patient including risks of bleeding, infection, perforation, reactions to anesthesia, aspiration and/or pain, informed consent was obtained. The patient was then taken to the endoscopy suite, where deep sedation was administered via propofol and anesthesia support. Once adequate sedation was achieved, the standard gastroscope was introduced into the mouth with intubation of the esophagus, stomach, and the proximal small intestines with the findings listed below. The patient tolerated this portion of the procedure well with no immediate perioperative complications. Upon completion of this phase of the procedure, all equipment was removed from the patient and the bed was rotated 180 degrees in anticipation for the colonoscopy. After a digital rectal exam was performed, the standard colonoscope was introduced into the rectum and advanced to the terminal ileum with some difficulty due to significant tortuosity and diverticular disease experienced within the left colon. The quality of the prep was fair to poor with a large amount of retained solid stool seen within the cecum making it inadequate to clear the cecum and proximal ascending colon but was adequate for the evaluation of large mucosal lesions or active bleeding. The patient tolerated this procedure well with no immediate perioperative complications. Upon completion of this portion of the procedure, all equipment was removed from the patient and she was transferred to PACU in satisfactory condition. EGD FINDINGS: Esophagus: Normal-appearing mucosa was seen in the proximal, mid, and distal esophagus. The diaphragmatic pinch was seen at 40 cm while the GE junction was well seen at 37 cm denoting a 3-cm hiatal hernia. Otherwise, there was no evidence of erosions, ulcerations, mass, lesions, or active/recent bleeding. Stomach: Normal-appearing mucosa was seen in the gastric cardia, fundus, antrum, and incisura. Multiple small erosions were seen in the gastric body, but did not exhibit overt ulceration or active/recent bleeding. No biopsies were taken from these erosions. Given her history of recent increased NSAID use, there was no evidence of erosions, ulcerations, mass, lesions, or active/recent bleeding seen in the stomach. Duodenum: Normal-appearing mucosa was seen in both the duodenal bulb and second portion of the duodenum. There was no evidence of erosions, ulcerations, mass, lesions, or active/recent bleeding. IMPRESSION: 1. Multiple small nonbleeding erosions seen in the gastric body consistent with NSAID gastritis. 2. A 3-cm hiatal hernia without evidence of Fletcher's erosions/ulcerations. 3. No etiology for the patient's hematochezia was seen during this portion of the exam. COLONOSCOPY FINDINGS: Digital rectal exam, large external hemorrhoids were seen on external exam with one particular hemorrhoid extremely erythematous and friable with oozing of blood. COLON FINDINGS: A moderate amount of retained solid stool was seen in the colon primarily within the cecum, but also to a lesser degree within the ascending and transverse colons. The retained food debris in the cecum significantly interfered with visualization of this region and therefore could not clear the cecum for any evidence of fine mucosal lesions that might contribute to bleeding. However, the prep was adequate enough to evaluate for larger mucosal lesions greater than a centimeter in size of the mucosa seen. Normal-appearing mucosa was seen in the terminal ileum with no evidence of bleeding seen coming from this region. Normal-appearing mucosa was seen at the appendiceal orifice and ileocecal valve as well. Normal-appearing mucosa was then seen in the ascending, transverse, and descending colons. In the distal descending and sigmoid colons, there were innumerable diverticula present that were both small and large mouthed. Careful examination of all of these diverticula were performed to evaluate for possible diverticular bleeding source. However, none was seen/discovered. Normal-appearing mucosa was then seen in the rectum. Medium-sized internal hemorrhoids were seen on rectal retroflexion as well as a hypertrophied anal papillae. IMPRESSION: 1. Poor colonic preparation with inadequate visualization of the cecum (fine mucosal lesions could have been missed). 2. Severe left-sided diverticulosis without any evidence of diverticular bleeding. 3. Both medium-sized internal hemorrhoids and large external hemorrhoids with evidence of active oozing of blood at the external hemorrhoids (possible source of recent hematochezia). 4. Hypertrophied anal papillae. RECOMMENDATIONS: 1. We would continue to trend H and H and transfuse as necessary to maintain an H and H of 7/21 while inpatient. 2. We would continue to monitor clinically for signs of overt gross GI bleeding. 3. We would place the patient on a higher fiber diet given the presence of severe diverticulosis and internal and external hemorrhoids. 4. We will consider application of hydrocortisone cream on the external hemorrhoids for hemorrhoidal flare that may have resulted in significant hemorrhoidal bleeding. Given the stabilization of the patient's H and H and actually up-trending of her H and H over the last 12 to 24 hours and lack of evidence of GI bleeding within that time period, the patient could be potentially discharged to home with outpatient follow up in the GI Clinic for further evaluation of her hematochezia. We will sign off at this time. Please call with any questions. Job ID: [id number]
--- NOTE | 2018-10-24 12:50 | PDOC.PN ---
- Subjective Encounter Start Date: 10/24/18 (f/u GI bleed) Encounter Start Time: 12:48 Subjective: pt s/p egd and colonoscopy this morning - denies any pain or problems. -: She sees Dr. Benton in the outpatient setting for cardiology. SHe is not -: on any meds at home and does not take aspirin - Objective Resuscitation Status - Order Detail: 10/22/18 15:15 Resuscitation Status Routine Resuscitation Status: FULL: Full Resuscitation Discussed with: discussed with pt Vital Signs & Weight: Vital Signs (12 hours) Temp Pulse Resp BP Pulse Ox 10/24/18 11:45 151/67 H 10/24/18 11:11 97.7 F 61 18 182/84 H 100 10/24/18 10:05 98.0 F 58 L 18 144/65 H 99 10/24/18 07:29 98 F 61 16 145/76 H 99 10/24/18 05:44 97.5 F L 63 16 142/67 H 96 Weight Weight 150 lb 6.4 oz I&O: 10/23/18 10/24/18 10/25/18 06:59 06:59 06:59 Intake Total 630 3629 Balance 630 3629 Result Diagrams: 10/23/18 12:32 10/23/18 04:13 EKG Reviewed by me: Yes (8 beats VT at 4:42 today, otherwise sinus 60-70's) Phys Exam - Physical Examination Constitutional: NAD Respiratory: no wheezing, no rales, no rhonchi, clear to auscultation bilateral Cardiovascular: RRR, no significant murmur Gastrointestinal: soft, non-tender, no distention, positive bowel sounds Musculoskeletal: no edema Neurological: non-focal Psychiatric: normal affect Skin: no rash Dx/Plan (1) Acute blood loss anemia Code(s): D62 - ACUTE POSTHEMORRHAGIC ANEMIA Status: Acute (2) Orthostatic hypotension Code(s): I95.1 - ORTHOSTATIC HYPOTENSION Status: Acute (3) Rectal bleeding Code(s): K62.5 - HEMORRHAGE OF ANUS AND RECTUM Status: Acute (4) HTN (hypertension) Code(s): I10 - ESSENTIAL (PRIMARY) HYPERTENSION Status: Chronic Qualifiers: Hypertension type: essential hypertension Qualified Code(s): I10 - Essential (primary) hypertension - Plan * Appreciate GI evaluation - needs f/u as outpatient, bleeding attributed to hemorroids * Consult Cardiology for the 8 beats of VT and echo ordered * * Anticipate d/c when cleared by cardiology * * dvt prophy - ambulatory * gi prophy - not indicated, starting oral ppi due to the chronic erosions on EGD * * anticipate d/c today or tomorrow..
[2018-10-24] MEDS ORDERED: PROPOFOL 200 MG/20 ML VIAL ONE (15:49)
[2018-10-24 15:55] VITALS: BP 128/59; TEMP 98.4
--- NOTE | 2018-10-24 15:58 | CON ---
DATE OF CONSULTATION: PRIMARY CARE DOCTOR: Dr. Cook. PRIMARY ELEMENTARY SPECIAL EDUCATION TEACHER: Bethany Kevin MD PRIMARY GI DOCTOR: Dr. Aviles. REASON FOR CONSULT: Status post 8 beats of SVT. HISTORY OF PRESENT ILLNESS: Ms. Rizo is a very pleasant 78-year-old female with a significant history of diverticulitis, right breast cancer, and left kidney cancer with left nephrectomy. She presents to Emergency Department for bloody stool for 10 to 12 times last week and severe weakness. Does feel the patient had a dizziness; however, she did not have any other cardiac complaints. This morning, around 4 o'clock, she has an 8 beats of ventricular tachycardia. The patient was asymptomatic during the episode. She denies any chest pain, heaviness, tightness, or any other cardiac complaints. The patient also complained of intermittent palpitation for 5 minutes about a few times a month when she lay on the bed and she almost go to sleep, but the patient did not have any dizziness, lightheadedness, shortness of breath, or any other complaints during the episodes. She also complained of sharp chest pain to the right side for a few seconds. At this moment during initial Cardiology consult assessment, the patient denied any cardiac complaints. She is being active as working at home instead. She had a stress test last year at Dr. Kevin. She have seen Dr. Benton, last office visit was in october 2017. She was told she was doing well and she was also told that she should stop taking any blood pressure medication. PAST MEDICAL HISTORY: 1. Diverticulosis and diverticulitis in June 2017. 2. History of the right breast cancer in 1998. 3. History of left renal cell carcinoma. 4. Questionable hypertension. 5. Degenerative joint disease. PAST SURGICAL HISTORY: Oophorectomy with bladder sling operation in the past, left nephrectomy in 2005, right axillary lymph node dissection and right lumpectomy in 1998, cholecystectomy, right calf repair, and cataract surgery in June 2018. FAMILY HISTORY: There are no significant cardiac related disease in her family. The patient's mother due to the CVA. SOCIAL HISTORY: She is a . She had 3 children, who live well. She live by herself. She has been active. 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 She walks about 35 hours per week. She denies tobacco, EtOH, or illicit drug abuse. She drinks 2 cups of coffee a day. ALLERGIES: NO KNOWN DRUG ALLERGIES. HOME MEDICATIONS: She takes Aleve as needed. REVIEW OF SYSTEMS: A 12-point review of systems are negative unless otherwise mentioned in the HPI. PHYSICAL EXAMINATION: VITAL SIGNS: Temperature 98.0, blood pressure 144/65, pulse is 58, respiratory rate 18, and O2 saturation 99% with room air. GENERAL: The patient is alert and oriented x4, in no acute distress. EYES: Extraocular muscle movement intact. ENT AND MOUTH: Oral and nasal mucosa moist without lesion. NECK: Supple. Normal range of motion. No JVD. RESPIRATORY: Clear to auscultate bilaterally. No wheezing, rales, or rhonchi noted. CARDIOVASCULAR: Regular rate and rhythm. Normal S1 and S2. There are no S3 or S4. No significant murmur, hives, or thrill noted. 2+ pulses in bilateral upper and lower extremities. No edema in lower extremities. ABDOMEN: Soft and nontender. No mass to palpitate. Bowel sounds are present. SKIN: Warm and dry. No lesion, rash, or erythema noted. MUSCULOSKELETAL: The patient able to move all extremities and the patient denied claudication. PSYCHIATRIC: The patient's mood is appropriate. NEUROLOGIC: The patient is alert and oriented x4, nonfocal. LABORATORY DATA: WBC 4.0, hemoglobin 9.1, hematocrit 27.6, and platelet 198. Sodium 139, potassium 4.0, BUN 15, creatinine 0.97, calcium 8.6, AST 20, and ALT 13. Troponin level is negative. INR 1.1. She underwent upper and lower GI study, which showed she had a polyp and diverticulosis of the large intestine. The patient has 8 beats of nonsustained ventricular tachycardia around [address]-segment change and she is having the heart rate around 55 to 60. A 12-lead EKG in the ER shows sinus rhythm 68. ASSESSMENT AND PLAN: 1. Status post 8-beat of nonsustained ventricular tachycardia. The patient was asymptomatic during the episode. The patient had a stress test last year at Dr. Benton's office in [facility]. We are going to receive the results from the office and to decide further evaluation and the patient is going to have echocardiogram here during this admission. 2. Hematochezia, which is stable at this moment. She has upper and lower GI study yesterday, which is managed by Dr. Blank. 3. Hypertension. Her systolic blood pressure has been more than 140s, may beneficial to start low-dose beta becky to prevent further nonsustained ventricular tachycardia and control her blood pressure. 4. History of diverticulosis, which is managed by the patient's primary care doctor and GI. Thank you very much for Cardiology Service to participate in the care of this patient. We will follow along the patient's care team and make further recommendations as appropriate. Job ID: [id number]
--- NOTE | 2018-10-24 16:34 | PRG ---
DATE OF SERVICE: 10/24/2018 SUBJECTIVE: Ms. Rizo has had no further bleeding. She did undergo colonoscopy today with Dr. Mac, and she had a fairly significant hemorrhoid that had slight oozing. She has not bled in 2 days. Her hemoglobin was 9.4 today from 9.1 yesterday with no transfusion. PHYSICAL EXAMINATION: VITAL SIGNS: Temperature is 98, pulse is 60, blood pressure is 120/58 this afternoon. ABDOMEN: Nontender. She is dressed and ready to go home. I had hemorrhoidal tissue, which there is no active bleeding. ASSESSMENT: Lower gastrointestinal bleeding. It is unclear if this was from diverticular bleeding or hemorrhoids. She did drop in hemoglobin from 11 to 9.4. PLAN: 1. We will treat her conservatively for hemorrhoids, and she is showing no signs of bleeding now with a topical steroid and Citrucel fiber. I told her she could use hydrocortisone 25 mg suppositories, but if this is too expensive, she can get [id number] Preparation H suppositories. 2. She can follow up in my office in 1 to 2 weeks. Bleeding precautions were discussed with the patient. We will go ahead and sign off at this point in time as it seems like she is going home. Her Cardiology confirmed her previous cardiac evaluation with Dr. Benton in [place] and if everything goes well and she is going to go home. Job ID: [id number]
--- NOTE | 2018-10-25 02:26 | DIS ---
DATE OF ADMISSION: 10/23/2018 DATE OF DISCHARGE: 10/24/2018 CONSULTANTS: Curtis Mac MD of Gastroenterology; Cardiology, Bethany Kevin MD PROCEDURES PERFORMED: EGD and colonoscopy. MEDICATIONS AT DISCHARGE: Medications reconciled at discharge, new medications: 1. Tylenol 1-2 tablets every 4 hours of the regular strength as needed for pain. 2. Hydrocortisone acetate 25 mg suppository at night for 10 nights. 3. Citrucel 1 tablespoon daily. MEDICATIONS DISCONTINUED: 1. Aspirin and Non-steroidal anti-inflammatory medications FINAL DIAGNOSES: 1. Gastrointestinal bleed attributed to hemorrhoids. 2. Brief nonsustained ventricular tachycardia, asymptomatic. 3. Chronic gastritis. 4. Severe diverticulosis, no active bleeding visualized. HISTORY OF PRESENT ILLNESS: Ms. Rizo is a 78-year-old female, who presented to the emergency room with multiple episodes of maroon stools. She had also been symptomatic from it. In the emergency room, the patient's hemoglobin was found to be 11. She was admitted for further workup. HOSPITAL COURSE: The patient underwent colonoscopy and EGD today. EGD showed normal esophagus with a 3 cm hiatal hernia, numerous gastric erosions without ulceration or bleeding, normal duodenum. Colonoscopy showed a poor colonic prep with inadequate visualization of the cecum, severe left-sided diverticulosis, small erythematous hemorrhoids and large erythematous external hemorrhoids. The hemorrhoids were thought to be the source of the bleeding. For this, it is recommended that the patient follow up in the outpatient setting with General Surgery for the external hemorrhoid. She will also follow up with Dr. Blank. She is started on fiber supplementation and hydrocortisone suppositories for short course to manage the symptoms. The patient had 8 beats of nonsustained ventricular tachycardia while here. She was evaluated by Cardiology and prior records were reviewed from another facility, with recommendation to follow up with her outpatient vocational rehabilitation counselor, Dr. Benton, or with Dr. Kevin. No further workup inpatient is warranted. The patient is overall feeling well, tolerating p.o., and does meet criteria for discharge to home. PHYSICAL EXAMINATION: Please see note on the chart from today. LABORATORY DATA: Craig findings and test results, hemoglobin today 9.4. CBC this morning 4.0, 9.1, 27.6, 198. INR 1.1. PT 14.5. Renal panel; 139, 4.0, 109, 25, 15, 0.97, 99. Troponin x3 negative. LFTs are negative. Stool occult blood was positive. 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 FOLLOWUP: 1. Follow up with Dr. Blank within a week. 2. Follow up with outpatient cardiology either Dr. Kevin or Dr. Benton within a week. 3. Follow up with the primary care provider within 2 weeks to review this hospitalization and address any other health needs. The patient will benefit from iron, this was not initiated at the time of discharge due to bleeding hemorrhoid and need for soft stools to assist with healing. Anticipate when this issue has been addressed, as that iron can be initiated. ACTIVITY: As tolerated. DIET: Regular. Reviewed with patient this hospitalization, the importance of followup, return for care precautions. DISCHARGE DISPOSITION: Home. TIME SPENT: Total time coordinating discharge is 30 minutes. Job ID: [id number]
== END 2018-10-24 18:24 | disposition home or self-care (01) | DRG 378 ==
LOC: ERS 09:26 → 2SW 12:20 → OBSVTOIN 10-23 12:40
PROVIDERS: ADMIT Internal Medicine; ATTEND Internal Medicine
PROC: 0DJ08ZZ Inspection of Upper Intestinal Tract, Via Natural or Artificial Opening Endoscopic (ICD-10-PCS; principal; 2018-10-23)
PROC: 0DJD8ZZ Inspection of Lower Intestinal Tract, Via Natural or Artificial Opening Endoscopic (ICD-10-PCS; 2018-10-23)
DX: K57.11 Diverticulosis of small intestine without perforation or abscess with bleeding (principal); D62 Acute posthemorrhagic anemia; I47.2 Ventricular tachycardia; I95.1 Orthostatic hypotension; K29.70 Gastritis, unspecified, without bleeding; K44.9 Diaphragmatic hernia without obstruction or gangrene; K64.8 Other hemorrhoids; K64.4 Residual hemorrhoidal skin tags; K62.89 Other specified diseases of anus and rectum
CPT/HCPCS: 36415; 74177; 80048; 80053; 82274; 84484; 85025; 85610; 85730; 86850; 86900; 86901; 93005; 96360; 96361; C9113

== ENCOUNTER 2021-01-25 11:48 | Emergency (ER) | payer MEDICARE ==
[2021-01-25 14:17] LABS: Hemoglobin 14.7 g/dL (12.0-16.0); Mean Corpuscular HGB CONC 32.8 g/dL (32.0-36.0); Mean Corpuscular Hemoglobin 31.3 pg (27.0-31.0); Mean Corpuscular Volume 95.3 fL (78.0-98.0); Mean Platelet Volume 7.5 fL (7.4-10.4); Platelet Count 245 thou/uL (130-400); RBC Distribution Width 11.7 % (11.5-14.5); Red Blood Cell (RBC) Count 4.71 mill/uL (4.20-5.40); White Blood Cell (WBC) Count 3.3 thou/uL (4.8-10.8)
[2021-01-25 14:23] LABS: ALT (SGPT) 25 U/L (8-55); AST (SGOT) 39 U/L (5-34); Albumin 4.6 g/dL (3.4-4.8); Alkaline Phosphatase 87 U/L (40-110); Anion Gap 15 mmol/L (10-20); BUN (Urea Nitrogen) 20 mg/dL (9.8-20.1); Bilirubin, Total 0.6 mg/dL (0.2-1.2); Calc. Creatinine Clearance 0 mL/min (70-130); Calcium 9.8 mg/dL (7.8-10.44); Carbon Dioxide 25 mmol/L (23-31); Chloride 99 mmol/L (98-107); Globulin 3.7 g/dL (2.4-3.5); Glucose 92 mg/dL (83-110); Potassium 4.5 mmol/L (3.5-5.1); Protein, Total 8.3 g/dL (5.8-8.1); Sodium 134 mmol/L (136-145)
[2021-01-25 14:55] LABS: Band 18 % (5-11); Lymphocytes 16 % (21-51); Monocytes 13 % (0-10); Neutrophil 50 % (42-75); Reactive Lymphocytes 3 % (0-10)
[2021-01-25 14:56] LABS: Platelet Morphology Comment Appears Adequate; Polychromasia SLIGHT = 2-3 cells (100X) (0-2/hpf)
[2021-01-25 14:57] LABS: MDiff Complete? YES
== END 2021-01-25 15:55 | disposition home or self-care (01) ==
LOC: ERS 11:48
DX: T88.1XXA Other complications following immunization, not elsewhere classified, initial encounter (principal); R53.1 Weakness; T50.B95A Adverse effect of other viral vaccines, initial encounter; M10.9 Gout, unspecified
CPT/HCPCS: 36415; 71045; 80053; 83690; 83880; 84484; 85025; 93005

== ENCOUNTER 2021-01-26 08:22 | Emergency (ER) | payer MEDICARE ==
[2021-01-26 09:31] LABS: Hemoglobin 13.7 g/dL (12.0-16.0); Mean Corpuscular HGB CONC 32.9 g/dL (32.0-36.0); Mean Corpuscular Hemoglobin 31.3 pg (27.0-31.0); Mean Corpuscular Volume 95.1 fL (78.0-98.0); Mean Platelet Volume 7.8 fL (7.4-10.4); Platelet Count 239 thou/uL (130-400); RBC Distribution Width 11.5 % (11.5-14.5); Red Blood Cell (RBC) Count 4.37 mill/uL (4.20-5.40); White Blood Cell (WBC) Count 3.9 thou/uL (4.8-10.8)
[2021-01-26 09:32] LABS: ALT (SGPT) 26 U/L (8-55); AST (SGOT) 43 U/L (5-34); Albumin 4.1 g/dL (3.4-4.8); Alkaline Phosphatase 74 U/L (40-110); Anion Gap 15 mmol/L (10-20); BUN (Urea Nitrogen) 24 mg/dL (9.8-20.1); Bilirubin, Total 0.6 mg/dL (0.2-1.2); Calc. Creatinine Clearance 0 mL/min (70-130); Calcium 9.2 mg/dL (7.8-10.44); Carbon Dioxide 21 mmol/L (23-31); Chloride 96 mmol/L (98-107); Globulin 3.4 g/dL (2.4-3.5); Glucose 88 mg/dL (83-110); Potassium 4.2 mmol/L (3.5-5.1); Protein, Total 7.5 g/dL (5.8-8.1); Sodium 128 mmol/L (136-145)
[2021-01-26 10:03] LABS: Band 1 % (5-11); Lymphocytes 27 % (21-51); MDiff Complete? YES; Monocytes 17 % (0-10); Neutrophil 55 % (42-75); Platelet Morphology Comment Appears Adequate; RBC Morphology Normal
[2021-01-26 11:30] LABS: Bilirubin Negative (Negative); Blood, Urine Negative (Negative); Clarity Turbid (Clear); Glucose, Urine (Dipstick) Normal (Negative); Ketone, Urine Negative (Negative); Leukocyte Negative Leu/uL (Negative); Nitrite Negative (Negative); Protein, Urine (Dipstick) Negative (Neg-Trace); Specific Gravity, Urine 1.007 (1.002-1.036); Urobilinogen Normal mg/dL (Less than 2); pH, Urine 5.5 (5.0-9.0)
[2021-01-26] MEDS ORDERED: Iopamidol-370 76% 500 ML 1 ML ONE (14:45)
== END 2021-01-26 14:19 | disposition home or self-care (01) ==
LOC: ERS 08:22
DX: E86.0 Dehydration (principal); T50.B95A Adverse effect of other viral vaccines, initial encounter; E87.1 Hypo-osmolality and hyponatremia; M19.90 Unspecified osteoarthritis, unspecified site
CPT/HCPCS: 36415; 71275; 80053; 81003; 83690; 84439; 84443; 84484; 85025; 85379; 93005; 94760; Q9967

== ENCOUNTER 2023-12-02 11:34 | Inpatient (IN) | payer MEDICARE ==
[~2023-12-02 11:34] MED LIST: Iopamidol-370 76% 500 ML MDV (1 ML CHARGE) ONE
[2023-12-02 13:22] LABS: #Basophils 0.03 10x3/uL (0.0-0.2); %Basophils 0.7 % (0.0-1.0); %Eosinophils 0.9 % (0.0-10.0); %Lymphocytes 20.9 % (21.0-51.0); %Monocytes 7.8 % (0.0-10.0); %Neutrophils 69.5 % (42.0-75.0); Hematocrit 26.2 % (36.0-47.0); Hemoglobin 8.5 g/dL (12.0-16.0); Mean Corpuscular HGB CONC 32.4 g/dL (32.0-36.0); Mean Corpuscular Hemoglobin 29.7 pg (27.0-31.0); Mean Corpuscular Volume 91.6 fL (78.0-98.0); Mean Platelet Volume 10.7 fL (7.4-10.4); Platelet Count 235 10x3/uL (130-400); RBC Distribution Width 15.9 % (11.5-14.5); Red Blood Cell (RBC) Count 2.86 mill/uL (4.20-5.40)
[2023-12-02 13:36] LABS: INR-International Normal Ratio 1.1; PTT 28.2 sec (22.9-36.1); Prothrombin Time 14.6 sec (12.0-14.7)
[2023-12-02 13:41] LABS: ALT (SGPT) 8 U/L (8-55); AST (SGOT) 22 U/L (5-34); Albumin 3.2 g/dL (3.4-4.8); Alkaline Phosphatase 62 U/L (40-110); Anion Gap 12 mmol/L (10-20); BUN (Urea Nitrogen) 32 mg/dL (9.8-20.1); Bilirubin, Total 0.5 mg/dL (0.2-1.2); Calc. Creatinine Clearance 0 mL/min (70-130); Calcium 9.1 mg/dL (7.8-10.44); Carbon Dioxide 22 mmol/L (23-31); Chloride 110 mmol/L (98-107); Estimated GFR 39; Globulin 2.7 g/dL (2.4-3.5); Glucose 95 mg/dL (83-110); Iron 31 ug/dL (50-170); Iron Binding Capacity, Total 311 mcg/dL (265-497); Potassium 4.4 mmol/L (3.5-5.1); Protein, Total 5.9 g/dL (5.8-8.1); Sodium 140 mmol/L (136-145)
[2023-12-02] MEDS ORDERED: HYDROcodone/Acetaminophen 5/325 mg Tablet PO PRN ×2 (15:03)
[2023-12-02] MEDS ORDERED: Acetaminophen 650 MG Suppository PR PRN (15:03)
[2023-12-02] MEDS: GoLYTELY 4,000 ml Bottle PO SCH (18:16)
[2023-12-02] MEDS: Pantoprazole 40 MG VIAL IVP SCH ×2 (18:17→20:17)
[2023-12-02 21:51] LABS: Hematocrit 27.2 % (36.0-47.0)
[2023-12-03 04:34] LABS: Hematocrit 21.8 % (36.0-47.0)
[2023-12-03 04:54] LABS: ALT (SGPT) 8 U/L (8-55); AST (SGOT) 20 U/L (5-34); Albumin 2.9 g/dL (3.4-4.8); Alkaline Phosphatase 55 U/L (40-110); Anion Gap 11 mmol/L (10-20); BUN (Urea Nitrogen) 25 mg/dL (9.8-20.1); Bilirubin, Total 0.6 mg/dL (0.2-1.2); Calc. Creatinine Clearance 0 mL/min (70-130); Calcium 8.6 mg/dL (7.8-10.44); Carbon Dioxide 22 mmol/L (23-31); Chloride 108 mmol/L (98-107); Estimated GFR 42; Globulin 2.3 g/dL (2.4-3.5); Glucose 89 mg/dL (83-110); Protein, Total 5.2 g/dL (5.8-8.1); Sodium 137 mmol/L (136-145)
[2023-12-03 08:40] LABS: Hematocrit 21.7 % (36.0-47.0); Hemoglobin 7.1 g/dL (12.0-16.0)
[2023-12-03] MEDS ORDERED: Midazolam HCl 2 mg/2 ml Vial ONE (10:14)
[2023-12-03] MEDS ORDERED: Ketamine In 0.9 % NaCl 50 MG/5 ML SYRINGE ONE (10:15)
[2023-12-03] MEDS ORDERED: PROPOFOL 20 ML ONE (11:25)
[2023-12-03] MEDS ORDERED: fentaNYL 50 mcg/mL 1 mL Vial ONE (12:07)
[2023-12-03 18:17] LABS: Hematocrit 26.5 % (36.0-47.0); Hemoglobin 9.2 g/dL (12.0-16.0)
[2023-12-03] MEDS: Lactated Ringer's 500 ML IV SCH (19:00)
[2023-12-03 21:18] LABS: Hemoglobin 8.6 g/dL (12.0-16.0)
[2023-12-04 01:27] LABS: Hematocrit 23.8 % (36.0-47.0); Hemoglobin 7.9 g/dL (12.0-16.0); Mean Corpuscular HGB CONC 33.2 g/dL (32.0-36.0); Mean Corpuscular Hemoglobin 29.7 pg (27.0-31.0); Mean Corpuscular Volume 89.5 fL (78.0-98.0); Mean Platelet Volume 10.4 fL (7.4-10.4); Platelet Count 196 10x3/uL (130-400); RBC Distribution Width 17.2 % (11.5-14.5); Red Blood Cell (RBC) Count 2.66 mill/uL (4.20-5.40)
[2023-12-04 03:54] LABS: #Basophils 0.03 10x3/uL (0.0-0.2); %Basophils 0.5 % (0.0-1.0); %Eosinophils 6.4 % (0.0-10.0); %Lymphocytes 15.2 % (21.0-51.0); %Neutrophils 66.4 % (42.0-75.0); Hematocrit 21.9 % (36.0-47.0); Hemoglobin 7.4 g/dL (12.0-16.0); Mean Corpuscular HGB CONC 33.8 g/dL (32.0-36.0); Mean Corpuscular Volume 88.7 fL (78.0-98.0); Mean Platelet Volume 10.8 fL (7.4-10.4); Platelet Count 185 10x3/uL (130-400); RBC Distribution Width 17.1 % (11.5-14.5); Red Blood Cell (RBC) Count 2.47 mill/uL (4.20-5.40)
[2023-12-04 04:15] LABS: Anion Gap 13 mmol/L (10-20); BUN (Urea Nitrogen) 17 mg/dL (9.8-20.1); Calc. Creatinine Clearance 0 mL/min (70-130); Calcium 8.4 mg/dL (7.8-10.44); Carbon Dioxide 21 mmol/L (23-31); Chloride 109 mmol/L (98-107); Estimated GFR 47; Glucose 88 mg/dL (83-110); Potassium 3.6 mmol/L (3.5-5.1); Sodium 139 mmol/L (136-145)
[2023-12-04 11:56] LABS: Hematocrit 24.7 % (36.0-47.0); Hemoglobin 8.2 g/dL (12.0-16.0)
[2023-12-04 14:50] VITALS: BP 137/70
[2023-12-04 18:38] LABS: Hematocrit 23.3 % (36.0-47.0); Hemoglobin 7.8 g/dL (12.0-16.0)
[2023-12-04] MEDS: Acetaminophen 325 MG TAB PO PRN (21:39)
[2023-12-05 02:26] LABS: #Basophils Less than 0.03 10x3/uL (0.0-0.2); %Basophils 0.4 % (0.0-1.0); %Eosinophils 10.1 % (0.0-10.0); %Lymphocytes 25.5 % (21.0-51.0); %Monocytes 12.5 % (0.0-10.0); %Neutrophils 50.9 % (42.0-75.0); Hematocrit 21.3 % (36.0-47.0); Hematocrit 21.6 % (36.0-47.0); Hemoglobin 7.2 g/dL (12.0-16.0); Mean Corpuscular HGB CONC 33.3 g/dL (32.0-36.0); Mean Corpuscular Hemoglobin 29.6 pg (27.0-31.0); Mean Corpuscular Volume 88.9 fL (78.0-98.0); Mean Platelet Volume 10.6 fL (7.4-10.4); Platelet Count 195 10x3/uL (130-400); RBC Distribution Width 16.6 % (11.5-14.5); Red Blood Cell (RBC) Count 2.43 mill/uL (4.20-5.40)
[2023-12-05 02:40] LABS: Anion Gap 9 mmol/L (10-20); BUN (Urea Nitrogen) 15 mg/dL (9.8-20.1); Calc. Creatinine Clearance 39 mL/min (70-130); Calcium 8.2 mg/dL (7.8-10.44); Carbon Dioxide 24 mmol/L (23-31); Chloride 110 mmol/L (98-107); Estimated GFR 49; Glucose 88 mg/dL (83-110); Potassium 3.6 mmol/L (3.5-5.1); Sodium 139 mmol/L (136-145)
[2023-12-05 09:36] LABS: Hematocrit 24.4 % (36.0-47.0); Hemoglobin 8.1 g/dL (12.0-16.0)
[2023-12-05] MEDS ORDERED: Loratadine 10 MG TAB PO PRN (09:51)
[2023-12-05 11:53] VITALS: TEMP 97.7
== END 2023-12-05 17:00 | disposition home or self-care (01) | DRG 378 ==
LOC: SUATTDRO 11:34 → ERS 11:34 → EEVIPCON 16:54 → T4-B 16:54 → OBSVTOIN 12-03 14:51 → IMCU/EMU 12-03 19:47
PROVIDERS: ADMIT Family Medicine; ATTEND Internal Medicine
PROC: 30233N1 Transfusion of Nonautologous Red Blood Cells into Peripheral Vein, Percutaneous Approach (ICD-10-PCS; 2023-12-03)
PROC: 30233K1 Transfusion of Nonautologous Frozen Plasma into Peripheral Vein, Percutaneous Approach (ICD-10-PCS; principal; 2023-12-04)
DX: K57.33 Diverticulitis of large intestine without perforation or abscess with bleeding (principal); C64.1 Malignant neoplasm of right kidney, except renal pelvis; D62 Acute posthemorrhagic anemia; N17.9 Acute kidney failure, unspecified; M19.90 Unspecified osteoarthritis, unspecified site; K29.01 Acute gastritis with bleeding; K64.8 Other hemorrhoids; E88.09 Other disorders of plasma-protein metabolism, not elsewhere classified; Z90.49 Acquired absence of other specified parts of digestive tract; Z85.3 Personal history of malignant neoplasm of breast; Z85.53 Personal history of malignant neoplasm of renal pelvis
CPT/HCPCS: 36415; 36430; 74177; 80048; 80053; 82728; 83540; 83550; 85014; 85018; 85025; 85610; 85730; 86850; 86900; 86901; 88305; C9113; J2250; J2704; J3010; J3490; J7120; P9016; P9059; Q9967

== ENCOUNTER 2024-04-25 02:25 | Inpatient (IN) | payer MEDICARE ==
[2024-04-25] MEDS ORDERED: Midazolam HCl 5 mg/ml Vial ONE (02:41)
[2024-04-25 03:05] LABS: #Basophils 0.05 10x3/uL (0.0-0.2); %Basophils 0.9 % (0.0-1.0); %Eosinophils 9.2 % (0.0-10.0); %Lymphocytes 25.9 % (21.0-51.0); %Monocytes 11.2 % (0.0-10.0); %Neutrophils 52.4 % (42.0-75.0); Hematocrit 37.8 % (36.0-47.0); Hemoglobin 12.2 g/dL (12.0-16.0); Mean Corpuscular HGB CONC 32.3 g/dL (32.0-36.0); Mean Corpuscular Hemoglobin 29.8 pg (27.0-31.0); Mean Corpuscular Volume 92.2 fL (78.0-98.0); Mean Platelet Volume 10.3 fL (7.4-10.4); Platelet Count 194 10x3/uL (130-400); RBC Distribution Width 14.3 % (11.5-14.5)
[2024-04-25] MEDS ORDERED: Metoprolol Tartrate 5 MG (5 mL) VIAL ONE (03:34)
[2024-04-25 03:36] LABS: ALT (SGPT) 37 U/L (8-55); AST (SGOT) 58 U/L (5-34); Albumin 3.5 g/dL (3.4-4.8); Alkaline Phosphatase 99 U/L (40-110); Anion Gap 17 mmol/L (10-20); BUN (Urea Nitrogen) 24 mg/dL (9.8-20.1); Bilirubin, Total 0.6 mg/dL (0.2-1.2); Calc. Creatinine Clearance 0 mL/min (70-130); Calcium 8.7 mg/dL (7.8-10.44); Carbon Dioxide 20 mmol/L (23-31); Chloride 108 mmol/L (98-107); Estimated GFR 44; Globulin 2.7 g/dL (2.4-3.5); Glucose 98 mg/dL (83-110); Lipase 76 U/L (8-78); Magnesium 1.8 mg/dL (1.6-2.6); Potassium 3.9 mmol/L (3.5-5.1); Protein, Total 6.2 g/dL (5.8-8.1); Sodium 141 mmol/L (136-145)
[2024-04-25 03:37] LABS: Acetaminophen Less than 10 mcg/mL (Less than 10); Alcohol Less than 10.0 mg/dL (Less than 10); Salicylate Less than 8.0 mg/dL (Less than 8.0)
[2024-04-25 03:38] LABS: Troponin I 0.013 ng/mL (< 0.028)
[2024-04-25] MEDS ORDERED: Amiodarone 150 MG/3 ML VIAL ONE (04:07)
[2024-04-25] MEDS ORDERED: NOREPINEPHRINE 8 MG/250 ML-D5W 250 ML ONE (04:12)
[2024-04-25 05:13] LABS: Actual Bicarbonate (HCO3a) 20.1 mEq/L (22-28); Base Excess (BEa) -5.2 mEq/L (-2.0 to +3.0); CO2 Tension 38.3 mmHg (35.0-45.0); Calcium, Ionized (arterial) 1.14 mmol/L (1.12-1.30); Carboxyhemoglobin (COHb) 0.4 gm% (0.0-3.0); Hematocrit-ABG 37 % (36.0-47.0); Hemoglobin (Hb) 12.6 g/dL (12.0-16.0); O2 Tension (PaO2), arterial 278.2 mmHg (> 60.0); pH, Arterial 7.337 (7.35-7.45)
[2024-04-25 05:14] LABS: ALV-art Gradient 386.925 mmHg (0-20); Puncture Site RR
[2024-04-25] MEDS ORDERED: DOPamine 400 MG/D5W 250 ML 250 ML ONE (05:20)
[2024-04-25] MEDS ORDERED: Ondansetron PF 4 MG/2 ML Vial IVP PRN (05:51)
[2024-04-25] MEDS ORDERED: Acetaminophen 325 MG TAB PO PRN (05:51)
[2024-04-25] MEDS ORDERED: Magnesium Sulfate 2 GM in Sodium Chloride 0.9% 100 ML IVPB SCH (06:00)
[2024-04-25] MEDS ORDERED: Magnesium 2 GM/50 ML BAG (IN WATER) ONE (06:01)
[2024-04-25] MEDS ORDERED: Ondansetron PF 4 MG/2 ML Vial ONE (06:11)
[2024-04-25] MEDS: Magnesium 2 GM/50 ML(in water) 2 GM in Premix 1 BAG IVPB SCH (06:27)
[2024-04-25] MEDS ORDERED: NOREPINEPHRINE 8 MG/250 ML-D5W 250 ML IVPB SCH (08:15)
[2024-04-25] MEDS ORDERED: Enoxaparin 40 MG (0.4 mL) SYRINGE SC SCH (09:00)
[2024-04-25] MEDS ORDERED: Heparin 5,000 UNITS/ML VIAL SC SCH (09:00)
[2024-04-25] MEDS ORDERED: Enoxaparin 60 MG (0.6 mL) SYRINGE SC SCH (09:00)
[2024-04-25] MEDS ORDERED: Electrolyte Replacement Protocol FS PRN (10:00)
[2024-04-25] MEDS: Electrolyte Replacement Protocol 1 EACH FS ONE (10:46)
[2024-04-25] MEDS: Pantoprazole DR 40 MG TAB PO SCH (10:58)
[2024-04-25] MEDS: Heparin 5,000 UNITS/ML VIAL SC SCH (10:59)
[2024-04-25 17:15] VITALS: BMI 21.2
[2024-04-25] MEDS: Enoxaparin 60 MG (0.6 mL) SYRINGE SC SCH (20:30)
[2024-04-26] MEDS: DOPamine 400 MG/D5W 250 ML 250 ML IVPB SCH (02:02)
[2024-04-26 04:58] LABS: #Basophils 0.03 10x3/uL (0.0-0.2); %Basophils 0.6 % (0.0-1.0); %Eosinophils 8.1 % (0.0-10.0); %Lymphocytes 16.9 % (21.0-51.0); %Monocytes 9.7 % (0.0-10.0); %Neutrophils 64.5 % (42.0-75.0); Hematocrit 35.6 % (36.0-47.0); Hemoglobin 11.8 g/dL (12.0-16.0); Mean Corpuscular HGB CONC 33.1 g/dL (32.0-36.0); Mean Corpuscular Hemoglobin 29.5 pg (27.0-31.0); Platelet Count 245 10x3/uL (130-400)
[2024-04-26 05:32] LABS: ALT (SGPT) 191 U/L (8-55); AST (SGOT) 155 U/L (5-34); Albumin 3.2 g/dL (3.4-4.8); Alkaline Phosphatase 105 U/L (40-110); Anion Gap 11 mmol/L (10-20); BUN (Urea Nitrogen) 17 mg/dL (9.8-20.1); Bilirubin, Total 0.6 mg/dL (0.2-1.2); Calc. Creatinine Clearance 38 mL/min (70-130); Calcium 8.7 mg/dL (7.8-10.44); Carbon Dioxide 25 mmol/L (23-31); Chloride 107 mmol/L (98-107); Estimated GFR 54; Globulin 2.8 g/dL (2.4-3.5); Glucose 94 mg/dL (83-110); Potassium 4.1 mmol/L (3.5-5.1); Sodium 139 mmol/L (136-145)
[2024-04-26] MEDS: Magnesium 2 GM/50 ML(in water) 2 GM in Premix 1 BAG IVPB SCH (07:48)
[2024-04-26] MEDS: Empagliflozin 10 MG TAB PO SCH (08:01)
[2024-04-27 04:58] LABS: #Basophils 0.04 10x3/uL (0.0-0.2); %Basophils 0.9 % (0.0-1.0); %Eosinophils 9.6 % (0.0-10.0); %Lymphocytes 18.2 % (21.0-51.0); %Monocytes 12.8 % (0.0-10.0); %Neutrophils 58.3 % (42.0-75.0); Hematocrit 34.2 % (36.0-47.0); Hemoglobin 11.3 g/dL (12.0-16.0); Mean Corpuscular Hemoglobin 29.6 pg (27.0-31.0); Mean Corpuscular Volume 89.5 fL (78.0-98.0); Mean Platelet Volume 10.2 fL (7.4-10.4); Platelet Count 223 10x3/uL (130-400); RBC Distribution Width 14.2 % (11.5-14.5); Red Blood Cell (RBC) Count 3.82 mill/uL (4.20-5.40)
[2024-04-27 05:14] LABS: ALT (SGPT) 118 U/L (8-55); AST (SGOT) 76 U/L (5-34); Albumin 3.1 g/dL (3.4-4.8); Alkaline Phosphatase 92 U/L (40-110); Anion Gap 15 mmol/L (10-20); BUN (Urea Nitrogen) 23 mg/dL (9.8-20.1); Bilirubin, Total 0.8 mg/dL (0.2-1.2); Calc. Creatinine Clearance 30 mL/min (70-130); Calcium 8.7 mg/dL (7.8-10.44); Carbon Dioxide 24 mmol/L (23-31); Chloride 107 mmol/L (98-107); Estimated GFR 41; Globulin 2.7 g/dL (2.4-3.5); Glucose 88 mg/dL (83-110); Magnesium 2.2 mg/dL (1.6-2.6); Potassium 4.6 mmol/L (3.5-5.1); Protein, Total 5.8 g/dL (5.8-8.1); Sodium 141 mmol/L (136-145)
[2024-04-27] MEDS: Carvedilol 6.25 MG TAB PO SCH (08:40)
[2024-04-27] MEDS ORDERED: Regadenoson 0.4 MG/5 ML SYRINGE ONE (09:38)
[2024-04-27 10:43] VITALS: BMI 20.9
[2024-04-27] MEDS ORDERED: Communication Order-Pharmacy FS SCH (19:00)
[2024-04-27] MEDS: Lisinopril 5 MG TAB PO SCH (20:22)
[2024-04-28 04:06] LABS: #Basophils 0.04 10x3/uL (0.0-0.2); %Basophils 0.9 % (0.0-1.0); %Eosinophils 5.7 % (0.0-10.0); %Lymphocytes 19.6 % (21.0-51.0); %Monocytes 12.1 % (0.0-10.0); %Neutrophils 61.3 % (42.0-75.0); Hematocrit 33.5 % (36.0-47.0); Hemoglobin 11.1 g/dL (12.0-16.0); Mean Corpuscular HGB CONC 33.1 g/dL (32.0-36.0); Mean Corpuscular Hemoglobin 29.7 pg (27.0-31.0); Mean Corpuscular Volume 89.6 fL (78.0-98.0); Mean Platelet Volume 10.8 fL (7.4-10.4); Platelet Count 230 10x3/uL (130-400); RBC Distribution Width 14.2 % (11.5-14.5); Red Blood Cell (RBC) Count 3.74 mill/uL (4.20-5.40)
[2024-04-28 04:42] LABS: ALT (SGPT) 86 U/L (8-55); AST (SGOT) 47 U/L (5-34); Albumin 3.2 g/dL (3.4-4.8); Alkaline Phosphatase 89 U/L (40-110); Anion Gap 13 mmol/L (10-20); BUN (Urea Nitrogen) 32 mg/dL (9.8-20.1); Bilirubin, Total 0.7 mg/dL (0.2-1.2); Calc. Creatinine Clearance 32 mL/min (70-130); Carbon Dioxide 22 mmol/L (23-31); Chloride 107 mmol/L (98-107); Estimated GFR 43; Globulin 2.6 g/dL (2.4-3.5); Glucose 89 mg/dL (83-110); Magnesium 2.2 mg/dL (1.6-2.6); Potassium 3.9 mmol/L (3.5-5.1); Protein, Total 5.8 g/dL (5.8-8.1); Sodium 138 mmol/L (136-145)
[2024-04-28] MEDS ORDERED: Heparin 10,000 UNITS/ 10 ML VIAL ONE (06:05)
[2024-04-28] MEDS ORDERED: Nitroglycerin 50 MG/250 ML BOT 0 ML ONE (06:06)
[2024-04-28] MEDS ORDERED: Midazolam HCl 2 mg/2 ml Vial ONE (06:54)
[2024-04-28] MEDS ORDERED: fentaNYL 50 mcg/mL 1 mL Vial ONE (06:54)
[2024-04-28] MEDS ORDERED: Enoxaparin 60 MG (0.6 mL) SYRINGE SC SCH (09:00)
[2024-04-28] MEDS ORDERED: Iopamidol 370 76% 100 ML VIAL ONE (10:14)
[2024-04-28] MEDS: Dapagliflozin Propanediol 10 MG TAB PO SCH (10:21)
[2024-04-28] MEDS: Aspirin 81 mg Enteric Coated Tablet PO SCH (10:22)
[2024-04-28] MEDS: Atorvastatin Calcium 20 MG TAB PO SCH (20:36)
[2024-04-29 04:36] LABS: #Basophils 0.04 10x3/uL (0.0-0.2); %Basophils 0.7 % (0.0-1.0); %Eosinophils 7.6 % (0.0-10.0); %Lymphocytes 14.3 % (21.0-51.0); %Monocytes 12.8 % (0.0-10.0); %Neutrophils 63.9 % (42.0-75.0); Hematocrit 31.3 % (36.0-47.0); Hemoglobin 10.1 g/dL (12.0-16.0); Mean Corpuscular HGB CONC 32.3 g/dL (32.0-36.0); Mean Corpuscular Hemoglobin 29.7 pg (27.0-31.0); Mean Corpuscular Volume 92.1 fL (78.0-98.0); Mean Platelet Volume 10.6 fL (7.4-10.4); Platelet Count 216 10x3/uL (130-400); RBC Distribution Width 14.1 % (11.5-14.5)
[2024-04-29 04:59] LABS: Anion Gap 12 mmol/L (10-20); BUN (Urea Nitrogen) 35 mg/dL (9.8-20.1); Calc. Creatinine Clearance 27 mL/min (70-130); Carbon Dioxide 25 mmol/L (23-31); Chloride 107 mmol/L (98-107); Estimated GFR 39; Glucose 99 mg/dL (83-110); Potassium 4.1 mmol/L (3.5-5.1); Sodium 140 mmol/L (136-145)
[2024-04-29] MEDS ORDERED: Lisinopril 5 MG TAB PO SCH ×2 (09:00→21:00)
[2024-04-29] MEDS ORDERED: Aspirin 81 mg Enteric Coated Tablet PO SCH (09:00)
[2024-04-29] MEDS: Dapagliflozin Propanediol 10 MG TAB PO SCH (10:46)
[2024-04-29 11:55] VITALS: BP 116/72; TEMP 98.3
[2024-04-29] MEDS ORDERED: Apixaban 2.5 MG TAB PO SCH (21:00)
== END 2024-04-29 14:02 | disposition home or self-care (01) | DRG 286 ==
LOC: ERS 02:25 → ERHOLD 05:34 → CCU 08:06 → 2NO 04-26 19:29
PROVIDERS: ADMIT Internal Medicine; ATTEND Internal Medicine
PROC: 4A033R1 Measurement of Arterial Saturation, Peripheral, Percutaneous Approach (ICD-10-PCS; 2024-04-25)
PROC: 4A023N7 Measurement of Cardiac Sampling and Pressure, Left Heart, Percutaneous Approach (ICD-10-PCS; principal; 2024-04-28)
PROC: B2111ZZ Fluoroscopy of Multiple Coronary Arteries using Low Osmolar Contrast (ICD-10-PCS; 2024-04-28)
PROC: B2151ZZ Fluoroscopy of Left Heart using Low Osmolar Contrast (ICD-10-PCS; 2024-04-28)
DX: I48.0 Paroxysmal atrial fibrillation (principal); R57.0 Cardiogenic shock; I50.22 Chronic systolic (congestive) heart failure; C64.9 Malignant neoplasm of unspecified kidney, except renal pelvis; C18.9 Malignant neoplasm of colon, unspecified; K92.2 Gastrointestinal hemorrhage, unspecified; N18.30 Chronic kidney disease, stage 3 unspecified; I42.9 Cardiomyopathy, unspecified; I25.10 Atherosclerotic heart disease of native coronary artery without angina pectoris; I12.9 Hypertensive chronic kidney disease with stage 1 through stage 4 chronic kidney disease, or unspecified chronic kidney disease; Z85.3 Personal history of malignant neoplasm of breast; Z79.899 Other long term (current) drug therapy; Z90.49 Acquired absence of other specified parts of digestive tract
CPT/HCPCS: 36415; 36556; 71045; 71275; 78452; 80048; 80053; 80307; 82805; 83605; 83690; 83735; 83880; 84443; 84484; 85025; 93005; 93017; 93306; 93458; 96365; 96366; 96367; 96368; 96375; 99152; 99153; A9500; C1769; C1887; J0282; J0283; J1265; J1644; J1650; J2250; J2405; J2785; J3010; J3475; Q9967

== ENCOUNTER 2024-08-03 09:54 | Outpatient (CLI) | payer MEDICARE, OTHER | END 2024-08-03 09:55 | disposition home or self-care (01) | LOC: LABBT 09:54 | PROVIDERS: ATTEND Internal Medicine Cardiovascular Disease | DX: Z01.810 Encounter for preprocedural cardiovascular examination (principal); I48.0 Paroxysmal atrial fibrillation; Z87.19 Personal history of other diseases of the digestive system | CPT/HCPCS: 93005; 93010 ==

== ENCOUNTER 2025-01-10 13:50 | Inpatient (IN) | payer MEDICARE ==
[2025-01-10 15:42] LABS: #Basophils 0.04 10x3/uL (0.0-0.2); #Eosinophils 0.16 10x3/uL (0.0-0.7); #Monocytes 0.51 10x3/uL (0.11-0.59); #Neutrophils 3.39 10x3/uL (1.40-6.50); %Basophils 0.8 % (0.0-1.0); %Eosinophils 3.2 % (0.0-10.0); %Lymphocytes 16.6 % (21.0-51.0); %Monocytes 10.3 % (0.0-10.0); %Neutrophils 68.9 % (42.0-75.0); Hematocrit 25.7 % (36.0-47.0); Hemoglobin 8.4 g/dL (12.0-16.0); Mean Corpuscular Hemoglobin 31.7 pg (27.0-31.0); Mean Corpuscular Volume 97.0 fL (78.0-98.0); Platelet Count 167 10x3/uL (130-400); Red Blood Cell (RBC) Count 2.65 mill/uL (4.20-5.40); White Blood Cell (WBC) Count 4.93 10x3/uL (4.8-10.8)
[2025-01-10 15:48] LABS: INR-International Normal Ratio 1.3; Prothrombin Time 16.2 sec (12.0-14.7)
[2025-01-10 15:49] LABS: PTT 26.9 sec (22.9-36.1)
[2025-01-10 16:02] LABS: ALT (SGPT) 28 U/L (Less than 34); AST (SGOT) 40 U/L (11-34); Albumin 3.4 g/dL (3.1-4.5); Alkaline Phosphatase 78 U/L (40-110); Anion Gap 13 mmol/L (10-20); BUN (Urea Nitrogen) 41 mg/dL (9.8-20.1); Bilirubin, Total 0.5 mg/dL (0.3-1.2); Calc. Creatinine Clearance 0 mL/min (70-130); Calcium 8.7 mg/dL (7.8-10.44); Carbon Dioxide 21 mmol/L (23-31); Chloride 105 mmol/L (98-107); Globulin 2.6 g/dL (2.4-3.5); Glucose 95 mg/dL (83-110); Potassium 4.7 mmol/L (3.5-5.1); Sodium 134 mmol/L (136-145)
[2025-01-10] MEDS ORDERED: Pantoprazole 40 MG VIAL ONE (16:20)
[2025-01-10 19:10] LABS: Bacteria/HPF None Seen HPF (None Seen); CAUTI Indications for Culture Pelvic or flank pain; Glucose, Urine (Dipstick) Normal (Negative); Leukocyte Negative Leu/uL (Negative); Protein, Urine (Dipstick) Negative (Neg-Trace); RBC/HPF 0-3 HPF (0-3); Specific Gravity, Urine 1.018 (1.002-1.036); WBC/HPF 0-3 HPF (0-3)
[2025-01-10 19:11] LABS: Urine Culture Reflex No No
[2025-01-10 22:06] VITALS: BMI 17.9
[2025-01-11] MEDS ORDERED: Ondansetron PF 4 MG/2 ML Vial IVP PRN (00:15)
[2025-01-11] MEDS ORDERED: Acetaminophen 325 MG TAB PO PRN (00:15)
[2025-01-11] MEDS ORDERED: Calcium Carbonate 500 MG ChewTAB PO PRN (00:15)
[2025-01-11] MEDS ORDERED: Electrolyte Replacement Protocol 1 EACH FS SCH (00:15)
[2025-01-11 04:27] LABS: #Basophils 0.03 10x3/uL (0.0-0.2); #Eosinophils 0.24 10x3/uL (0.0-0.7); #Monocytes 0.61 10x3/uL (0.11-0.59); #Neutrophils 3.95 10x3/uL (1.40-6.50); %Basophils 0.5 % (0.0-1.0); %Eosinophils 4.3 % (0.0-10.0); %Lymphocytes 12.1 % (21.0-51.0); %Monocytes 11.1 % (0.0-10.0); %Neutrophils 71.6 % (42.0-75.0); Hematocrit 22.5 % (36.0-47.0); Hemoglobin 7.4 g/dL (12.0-16.0); Mean Corpuscular Hemoglobin 31.4 pg (27.0-31.0); Mean Corpuscular Volume 95.3 fL (78.0-98.0); Platelet Count 176 10x3/uL (130-400); Red Blood Cell (RBC) Count 2.36 mill/uL (4.20-5.40); White Blood Cell (WBC) Count 5.52 10x3/uL (4.8-10.8)
[2025-01-11 04:52] LABS: ALT (SGPT) 24 U/L (Less than 34); AST (SGOT) 28 U/L (11-34); Albumin 3.1 g/dL (3.1-4.5); Alkaline Phosphatase 68 U/L (40-110); Anion Gap 13 mmol/L (10-20); BUN (Urea Nitrogen) 49 mg/dL (9.8-20.1); Bilirubin, Total 0.4 mg/dL (0.3-1.2); Calc. Creatinine Clearance 23 mL/min (70-130); Calcium 8.5 mg/dL (7.8-10.44); Carbon Dioxide 19 mmol/L (23-31); Chloride 109 mmol/L (98-107); Globulin 2.4 g/dL (2.4-3.5); Glucose 98 mg/dL (83-110); Potassium 3.9 mmol/L (3.5-5.1); Sodium 137 mmol/L (136-145)
[2025-01-11] MEDS: Pantoprazole 40 MG VIAL IVP SCH (09:16)
[2025-01-11] MEDS: Carvedilol 6.25 MG TAB PO SCH (09:16)
[2025-01-11 09:25] LABS: Hematocrit 22.4 % (36.0-47.0); Hemoglobin 7.3 g/dL (12.0-16.0)
[2025-01-11 12:09] VITALS: BMI 17.9
[2025-01-11] MEDS ORDERED: GoLYTELY 4,000 ml Bottle PO SCH (14:00)
[2025-01-11 14:19] LABS: #Basophils 0.06 10x3/uL (0.0-0.2); #Eosinophils 0.12 10x3/uL (0.0-0.7); #Monocytes 0.69 10x3/uL (0.11-0.59); #Neutrophils 4.32 10x3/uL (1.40-6.50); %Basophils 1.0 % (0.0-1.0); %Eosinophils 1.9 % (0.0-10.0); %Lymphocytes 16.6 % (21.0-51.0); %Monocytes 11.0 % (0.0-10.0); %Neutrophils 69.0 % (42.0-75.0); Hematocrit 26.8 % (36.0-47.0); Hemoglobin 8.7 g/dL (12.0-16.0); Mean Corpuscular Hemoglobin 31.6 pg (27.0-31.0); Mean Corpuscular Volume 97.5 fL (78.0-98.0); Platelet Count 164 10x3/uL (130-400); Red Blood Cell (RBC) Count 2.75 mill/uL (4.20-5.40); White Blood Cell (WBC) Count 6.26 10x3/uL (4.8-10.8)
[2025-01-11 17:55] LABS: Hematocrit 22.7 % (36.0-47.0); Hemoglobin 7.7 g/dL (12.0-16.0)
[2025-01-11 23:55] LABS: Hematocrit 20.9 % (36.0-47.0); Hemoglobin 7.2 g/dL (12.0-16.0)
[2025-01-12 04:01] LABS: Hematocrit 22.5 % (36.0-47.0); Hemoglobin 7.4 g/dL (12.0-16.0)
[2025-01-12] MEDS ORDERED: PROPOFOL 20 ML ONE (07:21)
[2025-01-12 07:42] LABS: Anion Gap 13 mmol/L (10-20); BUN (Urea Nitrogen) 55 mg/dL (9.8-20.1); Calc. Creatinine Clearance 24 mL/min (70-130); Calcium 8.0 mg/dL (7.8-10.44); Carbon Dioxide 17 mmol/L (23-31); Chloride 112 mmol/L (98-107); Glucose 93 mg/dL (83-110); Potassium 3.9 mmol/L (3.5-5.1); Sodium 138 mmol/L (136-145)
[2025-01-12] MEDS ORDERED: GLYCOPYRROLATE/PF 0.2 MG/ML VIAL ONE (08:26)
[2025-01-13 03:57] LABS: #Basophils Less than 0.03 10x3/uL (0.0-0.2); #Eosinophils 0.36 10x3/uL (0.0-0.7); #Monocytes 0.68 10x3/uL (0.11-0.59); #Neutrophils 3.40 10x3/uL (1.40-6.50); %Basophils 0.4 % (0.0-1.0); %Eosinophils 6.7 % (0.0-10.0); %Lymphocytes 17.2 % (21.0-51.0); %Monocytes 12.6 % (0.0-10.0); %Neutrophils 62.7 % (42.0-75.0); Hematocrit 18.4 % (36.0-47.0); Hemoglobin 6.1 g/dL (12.0-16.0); Mean Corpuscular Hemoglobin 31.6 pg (27.0-31.0); Mean Corpuscular Volume 95.3 fL (78.0-98.0); Platelet Count 150 10x3/uL (130-400); Red Blood Cell (RBC) Count 1.93 mill/uL (4.20-5.40); White Blood Cell (WBC) Count 5.41 10x3/uL (4.8-10.8)
[2025-01-13 04:21] LABS: Anion Gap 10 mmol/L (10-20); BUN (Urea Nitrogen) 42 mg/dL (9.8-20.1); Calc. Creatinine Clearance 22 mL/min (70-130); Calcium 8.0 mg/dL (7.8-10.44); Carbon Dioxide 17 mmol/L (23-31); Chloride 117 mmol/L (98-107); Glucose 99 mg/dL (83-110); Potassium 3.6 mmol/L (3.5-5.1); Sodium 140 mmol/L (136-145)
[2025-01-13 17:34] LABS: Hematocrit 22.4 % (36.0-47.0); Hemoglobin 7.6 g/dL (12.0-16.0)
[2025-01-14 08:22] LABS: #Basophils 0.03 10x3/uL (0.0-0.2); #Eosinophils 0.32 10x3/uL (0.0-0.7); #Monocytes 0.50 10x3/uL (0.11-0.59); #Neutrophils 2.07 10x3/uL (1.40-6.50); %Basophils 0.8 % (0.0-1.0); %Eosinophils 8.6 % (0.0-10.0); %Lymphocytes 20.2 % (21.0-51.0); %Monocytes 13.5 % (0.0-10.0); %Neutrophils 55.8 % (42.0-75.0); Hematocrit 24.3 % (36.0-47.0); Hemoglobin 8.2 g/dL (12.0-16.0); Mean Corpuscular Hemoglobin 31.8 pg (27.0-31.0); Mean Corpuscular Volume 94.2 fL (78.0-98.0); Platelet Count 178 10x3/uL (130-400); Red Blood Cell (RBC) Count 2.58 mill/uL (4.20-5.40); White Blood Cell (WBC) Count 3.71 10x3/uL (4.8-10.8)
[2025-01-14 08:38] LABS: Anion Gap 10 mmol/L (10-20); BUN (Urea Nitrogen) 32 mg/dL (9.8-20.1); Calc. Creatinine Clearance 28 mL/min (70-130); Calcium 8.7 mg/dL (7.8-10.44); Carbon Dioxide 22 mmol/L (23-31); Chloride 113 mmol/L (98-107); Glucose 96 mg/dL (83-110); Potassium 3.9 mmol/L (3.5-5.1); Sodium 141 mmol/L (136-145)
[2025-01-14] MEDS: Carvedilol 6.25 MG TAB PO SCH (09:10)
[2025-01-14] MEDS: Pantoprazole 40 MG DR.TAB PO SCH (09:10)
[2025-01-14 12:59] VITALS: BP 135/79; TEMP 97.5
== END 2025-01-14 13:43 | disposition home or self-care (01) | DRG 378 ==
LOC: ERS 13:50 → PCU 20:41 → OBSVTOIN 20:41
PROVIDERS: ADMIT Student in an Organized Health Care Education/Training Program; ATTEND Internal Medicine
PROC: 0DJD8ZZ Inspection of Lower Intestinal Tract, Via Natural or Artificial Opening Endoscopic (ICD-10-PCS; principal; 2025-01-10)
PROC: 30233N1 Transfusion of Nonautologous Red Blood Cells into Peripheral Vein, Percutaneous Approach (ICD-10-PCS; 2025-01-11)
DX: K62.5 Hemorrhage of anus and rectum (principal); C79.01 Secondary malignant neoplasm of right kidney and renal pelvis; D62 Acute posthemorrhagic anemia; N17.9 Acute kidney failure, unspecified; C50.911 Malignant neoplasm of unspecified site of right female breast; M19.90 Unspecified osteoarthritis, unspecified site; I12.9 Hypertensive chronic kidney disease with stage 1 through stage 4 chronic kidney disease, or unspecified chronic kidney disease; N18.30 Chronic kidney disease, stage 3 unspecified; I48.0 Paroxysmal atrial fibrillation; I95.9 Hypotension, unspecified; Z53.8 Procedure and treatment not carried out for other reasons; Z98.890 Other specified postprocedural states; Z90.722 Acquired absence of ovaries, bilateral; Z90.5 Acquired absence of kidney; Z85.528 Personal history of other malignant neoplasm of kidney; Z90.49 Acquired absence of other specified parts of digestive tract; Z79.01 Long term (current) use of anticoagulants; Z79.82 Long term (current) use of aspirin; Z79.899 Other long term (current) drug therapy
CPT/HCPCS: 36415; 36416; 36430; 71045; 74174; 80048; 80053; 81001; 82274; 85014; 85018; 85025; 85610; 85730; 86850; 86900; 86901; 93005; 94760; 96374; J2470; J2704; J3490; J7030; P9016; Q9967

== ENCOUNTER 2025-01-29 11:11 | Outpatient (CLI) | payer MEDICARE ==
[2025-01-29 11:58] LABS: #Basophils 0.08 10x3/uL (0.0-0.2); #Eosinophils 0.38 10x3/uL (0.0-0.7); #Monocytes 0.67 10x3/uL (0.11-0.59); #Neutrophils 3.56 10x3/uL (1.40-6.50); %Basophils 1.5 % (0.0-1.0); %Eosinophils 6.9 % (0.0-10.0); %Lymphocytes 14.1 % (21.0-51.0); %Monocytes 12.2 % (0.0-10.0); %Neutrophils 64.9 % (42.0-75.0); Hematocrit 34.6 % (36.0-47.0); Hemoglobin 10.4 g/dL (12.0-16.0); Mean Corpuscular Hemoglobin 31.7 pg (27.0-31.0); Mean Corpuscular Volume 105.5 fL (78.0-98.0); Platelet Count 197 10x3/uL (130-400); Red Blood Cell (RBC) Count 3.28 mill/uL (4.20-5.40); White Blood Cell (WBC) Count 5.48 10x3/uL (4.8-10.8)
[2025-01-29 12:17] LABS: Anion Gap 12 mmol/L (10-20); BUN (Urea Nitrogen) 31 mg/dL (9.8-20.1); Calc. Creatinine Clearance 0 mL/min (70-130); Calcium 8.7 mg/dL (7.8-10.44); Carbon Dioxide 21 mmol/L (23-31); Chloride 107 mmol/L (98-107); Glucose 82 mg/dL (83-110); Potassium 4.3 mmol/L (3.5-5.1); Sodium 136 mmol/L (136-145)
== END 2025-01-29 11:12 | disposition home or self-care (01) ==
LOC: LABBT 11:11
PROVIDERS: ATTEND Internal Medicine Cardiovascular Disease
DX: Z01.812 Encounter for preprocedural laboratory examination (principal); K92.2 Gastrointestinal hemorrhage, unspecified; I48.0 Paroxysmal atrial fibrillation; Z91.81 History of falling
CPT/HCPCS: 80048; 85025

== ENCOUNTER 2025-02-09 06:07 | Day surgery (SDC) | payer MEDICARE ==
[2025-01-29 11:27] VITALS: BMI 17.2
[2025-02-09] MEDS ORDERED: PROPOFOL 200 MG/20 ML VIAL ONE (08:10)
== END 2025-02-09 09:20 | disposition home or self-care (01) ==
LOC: SDC 06:07
PROVIDERS: ATTEND Internal Medicine Cardiovascular Disease
PROC: B24BZZ4 Ultrasonography of Heart with Aorta, Transesophageal (ICD-10-PCS; principal; 2025-02-09)
DX: I48.0 Paroxysmal atrial fibrillation (principal); I08.1 Rheumatic disorders of both mitral and tricuspid valves; I25.10 Atherosclerotic heart disease of native coronary artery without angina pectoris; I10 Essential (primary) hypertension; E78.5 Hyperlipidemia, unspecified; I25.2 Old myocardial infarction; Z79.899 Other long term (current) drug therapy
CPT/HCPCS: 93312; J2704

== ENCOUNTER 2025-04-09 08:13 | Day surgery (SDC) | payer MEDICARE ==
[2025-04-09 08:24] LABS: #Basophils 0.06 10x3/uL (0.0-0.2); #Eosinophils 0.41 10x3/uL (0.0-0.7); #Monocytes 0.59 10x3/uL (0.11-0.59); #Neutrophils 2.52 10x3/uL (1.40-6.50); %Basophils 1.4 % (0.0-1.0); %Eosinophils 9.3 % (0.0-10.0); %Lymphocytes 18.2 % (21.0-51.0); %Monocytes 13.4 % (0.0-10.0); %Neutrophils 57.2 % (42.0-75.0); Hematocrit 38.3 % (36.0-47.0); Hemoglobin 11.9 g/dL (12.0-16.0); Mean Corpuscular Hemoglobin 30.3 pg (27.0-31.0); Mean Corpuscular Volume 97.5 fL (78.0-98.0); Platelet Count 252 10x3/uL (130-400); Red Blood Cell (RBC) Count 3.93 mill/uL (4.20-5.40); White Blood Cell (WBC) Count 4.40 10x3/uL (4.8-10.8)
[2025-04-09 08:41] LABS: INR-International Normal Ratio 1.1; PTT 32.8 sec (22.9-36.1); Prothrombin Time 14.1 sec (12.0-14.7)
[2025-04-09] MEDS ORDERED: Sodium Bicarbonate 2.5 MEQ/5 ML SDV ONE (09:52)
[2025-04-09] MEDS ORDERED: Lidocaine 1% w/Epinephrine 1:100K 20 ML VIAL ONE (09:52)
[2025-04-09] MEDS ORDERED: hydrALAZINE 20 MG/ML VIAL ONE (10:59)
== END 2025-04-09 14:37 | disposition home or self-care (01) ==
LOC: CT 08:13
PROVIDERS: ATTEND Nurse Practitioner Family
PROC: 0TB03ZX Excision of Right Kidney, Percutaneous Approach, Diagnostic (ICD-10-PCS; principal; 2025-04-09)
DX: C64.1 Malignant neoplasm of right kidney, except renal pelvis (principal); N03.9 Chronic nephritic syndrome with unspecified morphologic changes; Z85.3 Personal history of malignant neoplasm of breast
CPT/HCPCS: 36000; 50200; 77002; 77012; 85025; 85610; 85730; 88333; 88334; J0360; J3010; 36415; 88173; 88305; J2250